=== PATIENT | male | born 1985 | race Caucasian/White ===

== ENCOUNTER 2024-05-15 13:54 | Outpatient (REF) | payer MEDICAID, SELFPAY ==
--- NOTE | ~2024-05-15 | XR_ITS ---
EXAMINATION: XR HIP, RIGHT CLINICAL INFORMATION: Right hip pain. COMPARISON: None available. TECHNIQUE: Two views of the right hip. FINDINGS: The visualized right-sided pelvic bones are normal. The articular cartilage space of the right hip is maintained. No arthritic deformity. No fracture or subluxation. The greater and lesser trochanters of the femur have normal smooth contour. No lytic or osteoblastic lesion. A small focus of calcific density of 0.6 cm length projecting lateral to the greater trochanter could represent calcium hydroxyapatite deposition within the gluteus medius tendon. There is no erosion of the overlying cortex. Otherwise, soft tissues are unremarkable. XR/XR hip RT min 2V IMPRESSION: * No acute osseous injury at the right hip. * No arthritic deformity. * Small focus of calcific density projecting lateral to the greater trochanter could represent calcium hydroxyapatite deposition within the gluteus medius tendon and calcific tendinopathy could be a source of pain.
== END 2024-05-15 13:55 | disposition home or self-care (01) ==
LOC: HO.HHCX 13:54
PROVIDERS: Visit Provider Internal Medicine
DX: M70.61 Trochanteric bursitis, right hip (principal); M25.551 Pain in right hip
CPT/HCPCS: 73502

== ENCOUNTER 2024-05-15 14:15 | Outpatient (REF) | payer MEDICAID, SELFPAY | END 2024-05-15 14:16 | disposition home or self-care (01) | LOC: HO.HHCL 14:15 | PROVIDERS: Visit Provider Internal Medicine | DX: Z13.89 Encounter for screening for other disorder (principal) ==

== ENCOUNTER 2024-06-14 09:17 | Outpatient (AMB) | payer MEDICAID, SELFPAY ==
--- NOTE | 2024-06-14 09:21 | MHC.OFFVIS ---
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 Patient reports that he went to [facility] walk in a month ago, which pain was at a nine. He was told there was calcium deposit. He changed his diet for a anti-inflammatory diet and it make his pain better. Currently he is not having any pain but he would like to know if there is anything they missed on the x rays. 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 The patient was seen by internal medicine on 05/15/2024 with a complaint of right hip pain for one month. ? ? While in the office today, the patient confirms being seen at Walk-in clinic in 04/2024. He states at that time his pain was a 9/10. He claims he was told he had a calcium deposit in the right hip. He states he adjusted his diet to an anti-inflammatory diet and his pain is better. He denies having pain in the office today and states he is here to follow-up on his x-rays. ? [facility] Social History (Updated 06/14/24 @ 09:27 by Amairani Pedraza) Alcohol intake: never Patient Tobacco Use Status: Former Tobacco user Current occupational status: employed Current occupation: [employer] Review of Systems Const All systems reviewed & are unremarkable except as noted in HPI and below Physical Exam Const General: cooperative and no acute distress Orientation/consciousness: patient oriented x3 Resp Effort & Inspection: normal respiratory effort and able to speak in complete sentences Cardio Peripheral pulses: Peripheral pulses 2+ throughout Skin General skin exam: no rashes or lesions noted Neuro General: patient oriented x3 Extrem Other: Right hip: Normal to inspection. No ecchymosis, erythema, or edema. Full hip ROM in all planes. Slight tenderness to palpation over the greater trochanteric bursa. 5/5 strength with resisted hip flexion, knee extension, abduction, and abduction. Able to perform straight leg raise. NVI.? ? Patient reports numbness in the bilateral lateral lower extremity when in the prone position.? Assessment & Plan Assessment & Plan (1) Neuropathy, lateral femoral cutaneous nerve: Code(s): G57.10 - Meralgia paresthetica, unspecified lower limb Category: Medical (2) Greater trochanteric bursitis of right hip: Code(s): M70.61 - Trochanteric bursitis, right hip Category: Medical Plan Mr. Gamboa is a 39-year-old male who presents in the office today, as a new patient, for an evaluation of right hip pain. The patient was seen by internal medicine on 05/15/2024 with a complaint of right hip pain for one month. ? ? While in the office today, the patient confirms being seen at Walk-in clinic in 04/2024. He states at that time his pain was a 9/10. He claims he was told he had a calcium deposit in the right hip. He states he adjusted his diet to an anti-inflammatory diet and his pain is better. He denies having pain in the office today and states he is here to follow-up on his x-rays.? ? The patient may return to normal activities as tolerated. I educated the patient he should attempt to avoid repetitive motions in the future to help avoid a return of or worsening of his symptoms. He is able to take OTC anti-inflammatories. ? ? The patient expressed a concern about bilateral lateral lower extremity numbness and pain when laying prone. He would like to be further evaluated for this, therefore, a referral to Physiatry for further evaluation and treatment for the lower spine was made in the office today. ? ? Follow-up will be PRN, or sooner if needed. ? ? X-rays of the right hip, obtained on 05/15/2024, revealed:? * No acute osseous injury at the right hip.? * No arthritic deformity.? * Small focus of calcific density projecting lateral to the greater? trochanter could represent calcium hydroxyapatite deposition within the? gluteus medius tendon and calcific tendinopathy could be a source of? pain.? Patient Instructions: Scribed by Bianca Blair medical collector, for Magali Eaton PA-C on 06/14/2024 at 9:25 am, EST.? Coding Level of Care Code New Pt Level 3 (69792) Diagnoses Neuropathy, lateral femoral cutaneous nerve G57.10 Greater trochanteric bursitis of right hip M70.61
== END 2024-06-14 09:53 | disposition home or self-care (01) ==
PROVIDERS: PCP Internal Medicine; Visit Provider Physician Assistant
DX: M70.61 Trochanteric bursitis, right hip (principal); G57.10 Meralgia paresthetica, unspecified lower limb
CPT/HCPCS: 99203

== ENCOUNTER → 2024-06-14 09:17 | Outpatient (BNVA) | payer MEDICAID, SELFPAY | PROVIDERS: PCP Internal Medicine; Visit Provider Physician Assistant | DX: M70.61 Trochanteric bursitis, right hip (principal); G57.10 Meralgia paresthetica, unspecified lower limb | CPT/HCPCS: 99212 ==

== ENCOUNTER 2024-12-20 16:50 | Outpatient (REF) | payer MEDICAID, SELFPAY ==
[2024-12-20 18:08] LABS: Alanine Aminotransferase 18 U/L (0-40); Albumin Level 4.5 g/dL (3.5-5.0); Alkaline Phosphatase 65 U/L (39-117); Aspartate Amino Transferase 26 U/L (5-37); Bilirubin Direct 0.5 mg/dL (0.0-0.5); Bilirubin Total 1.6 mg/dL (0.0-1.0); Total Protein 7.8 g/dL (6.5-8.0)
[2024-12-21 08:09] LABS: ~HepC Num1 0.06 S/CO (0.00-0.79); ~Hepatitis C Antibody Nonreactive (Nonreactive)
== END 2024-12-20 16:51 | disposition home or self-care (01) ==
LOC: HO.HHCL 16:50
PROVIDERS: Visit Provider Family Medicine
DX: R10.11 Right upper quadrant pain (principal); F10.21 Alcohol dependence, in remission
CPT/HCPCS: 36415; 80076; 86803

== ENCOUNTER 2025-01-30 12:34 | Outpatient (REF) | payer MEDICAID, SELFPAY ==
[2025-01-30 13:16] LABS: MANUAL DIFF FLAG NO
[2025-01-30 13:27] LABS: Basophils Percent Auto 0.5 % (0-2); Hematocrit 46.8 % (42.0-52.0); Hemoglobin 15.9 g/dl (14.0-18.0); Imm Gran Abs Auto 0.03 X10*3/uL (0.00-0.03); Imm Gran Pct Auto 0.4 % (0.0-0.4); Lymphocytes Percent Auto 24.8 % (20-40); Mean Corpuscular Hemoglobin 30.4 pg (27.0-33.0); Mean Corpuscular Volume 89.5 fL (80.0-98.0); Mean Platelet Volume 9.5 fL (9.4-12.4); Monocytes Absolute Auto 0.7 X10*3/uL (0.1-1.2); Monocytes Percent Auto 8.2 % (2-11); Neutrophils Absolute Auto 5.3 x10*3/uL (2.0-8.3); Neutrophils Percent Auto 66.1 % (45-73); Platelet Count 301 X10*3/uL (160-400); Red Blood Count 5.23 X10*6/uL (4.60-5.80); White Blood Count 8.1 X10*3/uL (4.8-10.8)
[2025-01-30 13:36] LABS: Appearance Urine Clear; Color Urine Yellow; Glucose Urine UA Negative (Negative); Leukocyte Esterase Urine Negative (Negative); Nitrite Urine Negative (Negative); PH 6.5 (5.0-9.0); Urine Blood Negative (Negative); Urine Ketones 40 mg/dL (Negative); Urine Protein Negative (Neg-Trace)
[2025-01-30 13:40] LABS: Bacteria Urine None Seen (None Seen); Hyaline Casts Urine 0-2 /LPF (0-2); RBC Urine 0-2 /HPF (0-2); Squamous Epithelial Cell Urine 0-2 /HPF (0-2); WBC Urine 0-5 /HPF (0-5)
[2025-01-30 13:57] LABS: Alanine Aminotransferase 31 U/L (0-40); Albumin Level 4.7 g/dL (3.5-5.0); Alkaline Phosphatase 79 U/L (39-117); Anion Gap 13 (12-20); Aspartate Amino Transferase 38 U/L (5-37); Bilirubin Total 3.2 mg/dL (0.0-1.0); Blood Urea Nitrogen 4 mg/dL (9-16); Calcium 9.4 mg/dL (8.4-10.2); Carbon Dioxide 25 mmol/L (22-29); Chloride 106 mmol/L (96-108); Estimated Glomerular Filt Rate > 60; Glucose Random 102 mg/dL (60-115); Lipase 20 U/L (8-78); Potassium 3.8 mmol/L (3.3-5.1); Sodium 140 mmol/L (135-145)
--- OUTSIDE RECORDS SUMMARY | 2025-01-30 15:36 | XMS_ITS | Encounter Summary ---
Author Organization [employer] Address [address] [facility] 7 [place] [address] Care Team Providers Care Physical Laboratory Assistant Name Role Phone Olaf Gillespie MD Primary Care Prov ider Reason for Referral * Consultation (Routine) - Closed Specialty Diagnoses / Procedures Referred By Contperla t Referred To Contact Orthopaedic Surgery Diagnoses Right hip pain Angel Fraser MD [address] [place] [address] Phone: tel: fax: [facility] [address] [place] [address] Phone: tel: Referral ID Status Reason Start Date Expiration Date V isits Requested Visits Authorized [id number] Closed Specialty Services Required 05/15/2024 05/15/2025 1 1 Encounter Details Date Type Department Care Team (Late st Contact Info) Description 05/15/2024 Orders Only [facility] [address] [place] [address] Angel Fraser MD [address] [place] [address] Right hip pain (Primary Dx) Social History Tobacco Use Types Packs/Day Years Used Date Smoking Tobacco: Some Days Cigarettes Pipe Passive Smoke Exposure: Never Smokeless Tobacco: Never Comments:Smoke 1 pack of cig a month. Alcohol Use Standard Drinks/Week Comments Never 0 (1 standard drink = 0.6 oz pur e alcohol) sober 2 years Sex and Gender Information Value Date Recorded Sex Assigned at Male 10/01/2022 6:58 PM EDT Legal Sex Male 5:35 PM EDT Gender Identity Male 10/01/2022 6:58 PM EDT Sexual Orientation Choose not to disclose 2021 6:58 PM EDT documented as of this encounter Plan of Treatment Upcoming Encounters Date Type Department Care Team (Late st Contact Info) Description 02/12/2025 9:00 AM EDT Office Visit [facility] [address] [place] [address] Olaf Gillespie MD [address] [place] [address] 04/17/2025 10:10 AM EDT Office Visit [facility] [address] [place] [address] Pamela Poe LLD [address] [place] [phone] Scheduled Referrals Name Type Priority Associated Diagnoses Order Schedule Referral to Orthopaedic Surgery Outpatient Referral Routine Right hip pain Expected: 05/15/2024 (Approximate), Expires: 05/15/2025 documented as of this encounter Visit Diagnoses Diagnosis Right hip pain- Primary Pain in joint, pelvic region and thigh documented in this encounter Care Teams Physical Laboratory Assistant Relationship Specialty Start Date End Date Olaf Gillespie MD [address] [place] [address] PCP - General Internal Medicine 12/11/24 documented as of this encounter
--- OUTSIDE RECORDS SUMMARY | 2025-01-30 15:36 | XMS_ITS | Encounter Summary ---
Author Organization [employer] Address [address] [place] [address] [address] [place] [address] Care Team Providers Care Armature Repairer Name Role Phone Olaf Gillespie MD Primary Care Prov ider Reason for Referral * Imaging (Urgent) - Authorized Specialty Diagnoses / Procedures Referred By Contac t Referred To Contact Radiology Diagnoses Right upper quadrant pain Procedures US Abdomen Complete Cheryle Beltran MD [address] [place] [address] Phone: tel: fax: [address] Phone: tel: fax: Referral ID Status Reason Start Date Expiration Date V isits Requested Visits Authorized [id number] Authorized 01/30/2025 01/30/2026 1 1 Reason for Visit * Reason Comments sick visit Encounter Details Date Type Department Care Team (Late st Contact Info) Description 01/30/2025 11:15 AM EST Office Visit [facility] [address] [place], [place] [phone] Cheryle Beltran MD [address] [place], [place] [phone] Right upper quadrant pain (Primary Dx) Social History Tobacco Use Types Packs/Day Years Used Date Smoking Tobacco: Some Days Cigarettes Pipe Passive Smoke Exposure: Never Smokeless Tobacco: Never Tobacco Cessation:Ready to Q uit: Not Asked; Counseling Given: Not Answered Comments:Smoke 1 pack of cig a month. Alcohol Use Standard Drinks/Week Comments Never 0 (1 standard drink = 0.6 oz pur e alcohol) sober 2 years Depression Answer Date Recorded Patient Health Questionnaire-9 Score 6 01/01/2025 Patient Health Questionnaire-9 Score 6 01/01/2025 Last PHQ-9: Questionnaire Data Not on file 0 01/01/2025 Depression Answer Date Recorded Patient Health Questionnaire-2 Score 2 01/01/2025 Sex and Gender Information Value Date Recorded Sex Assigned at Male 10/01/2022 6:58 PM EDT Legal Sex Male 5:35 PM EDT Gender Identity Male 10/01/2022 6:58 PM EDT Sexual Orientation Choose not to disclose 2021 6:58 PM EDT documented as of this encounter Last Filed Vital Signs Vital Sign Reading Time Taken Comments Blood Pressure 142/78 01/30/2025 11:29 AM EST Pulse 80 01/30/2025 11:29 AM EST Temperature 36.7 ??C (98.1 ??F) 01/30/2025 11:[address] Respiratory Rate 18 01/30/2025 11:29 AM EST Oxygen Saturation 98% 01/30/2025 11:29 AM EST Inhaled Oxygen Concentration - - Weight 62.8 kg (138 lb 6.4 oz) 01/30/2025 11:29 AM EST Height 170.2 cm (5' 7 ) 01/30/2025 11:29 AM EST Body Mass Index 21.68 01/30/2025 11:29 AM EST documented in this encounter Progress Notes * Cheryle Beltran MD - 01/30/2025 11:15 AM EST SUBJECTIVE: Ranulfo Gamboa is a 40 y.o. year old male who presents for acute visit. Denies recent illness, ER visit, or hospitalization. Acute Concerns: RUQ abdominal pain following dietary changes of moving to all raw foods diet. He notes intermittentpain under R costal margin. He is belching frequently, though this was happening prior to diet changes as well. He is experiencing anxiety related to RUQ pain and elevated bilirubin. However, what caused him to come to clinic today was intermittent rectal pain x 1 week. His partner's father was just diagnosed with rectal cancer and he is concerned about the possibility for himself. He denies rectal bleeding. He denies urinary symptoms. Was in walkin 12/20/24 with similar symptoms, normal liver enzymes, bilirubin of 1.6 on that exam Patient Active Problem List Diagnosis Chronic alcoholism in remission ([facility]) Encounter for medical examination to establish care Belching Laboratory test Moderate anxiety History reviewed. No pertinent surgical history. Family History Problem Relation Name Age of Onset Thyroid disease Mother Celiac disease Mother Irritable bowel syndrome Mother Skin cancer Mother Obesity Mother Alcohol abuse Father Diabetes type II Paternal Grandfather Social History Social History Narrative Not on file Review of Systems Constitutional: Negative. Respiratory: Negative. Cardiovascular: Negative. Gastrointestinal: Positive for abdominal pain and rectal pain. Negative for abdominal distention, anal bleeding, blood in stool, constipation, diarrhea, nausea and vomiting. Musculoskeletal: Negative. Skin: Negative. OBJECTIVE: Vitals: 01/30/25 1129 BP: (!) 142/78 BP Location: Left arm Patient Position: Sitting BP Cuff Size: Adult Pulse: 80 Resp: 18 Temp: 98.1 ??F (36.7 ??C) TempSrc: Temporal SpO2: 98% Weight: 138 lb 6.4 oz (62.8 kg) Height: 5' 7 (1.702 m) Physical Exam Vitals and nursing note reviewed. Constitutional: Appearance: Normal appearance. He is normal weight. HENT: Head: Normocephalic and atraumatic. Cardiovascular: Rate and Rhythm: Normal rate and regular rhythm. Pulses: Normal pulses. Heart sounds: Normal heart sounds. Pulmonary: Effort: Pulmonary effort is normal. Breath sounds: Normal breath sounds. Abdominal: General: Abdomen is flat. There is no distension. Palpations: Abdomen is soft. There is no mass. Tenderness: There is abdominal tenderness. Musculoskeletal: Cervical back: Normal range of motion and neck supple. Skin: General: Skin is warm and dry. Capillary Refill: Capillary refill takes less than 2 seconds. Neurological: General: No focal deficit present. Mental Status: He is alert and oriented to person, place, and time. Psychiatric: Mood and Affect: Mood normal. Behavior: Behavior normal. Latest Reference Range & Units 12/20/24 16:51 Albumin Level 3.5 - 5.0 g/dL 4.5 Bilirubin, Total 0.0 - 1.0 mg/dL 1.6 (H) AST 5 - 37 U/L 26 ALT 0 - 40 U/L 18 Total Protein 6.5 - 8.0 g/dL 7.8 Hepatitis C Antibody Nonreactive Nonreactive Alkaline Phosphatase 39 - 117 U/L 65 Bilirubin, Direct 0.0 - 0.5 mg/dL 0.5 (H): Data is abnormally high ASSESSMENT/PLAN Problem List Items Addressed This Visit None Visit Diagnoses Right upper quadrant pain - Primary Relevant Orders Urinalysis, Complete, with Reflex to Culture Comprehensive Metabolic Panel CBC auto differential Lipase US Abdomen Complete Follow Up: per PCP recall or sooner prn No Known Allergies Current Outpatient Medications: Diclofenac Sodium 1 % gel, To apply to the affected area 3 times a day (Patient not taking: Reported on 12/25/2024), Disp: 100 g, Rfl: 0 documented in this encounter Plan of Treatment Upcoming Encounters Date Type Department Care Team (Late st Contact Info) Description 02/12/2025 9:00 AM EDT Office Visit [facility]S [address] [place] [address] VelizOlaf Jose MD [address] [place] [address] 04/17/2025 10:10 AM EDT Office Visit [place] [facility] [address] [place] [address] Pamela Poe LLD [address] [place] [address] Scheduled Orders Name Type Priority Associated Diagnoses Orde r Schedule US Abdomen Complete Imaging Urgent Right upper quadrant pain Expected: 01/30/2025, Expires: 01/30/2026 documented as of this encounter Procedures Procedure Name Priority Date/Time Associated Diagnosis Comments URINALYSIS, COMPLETE, WITH REFLEX TO CULTURE Routine 01/30/2025 12:38 PM EST Right upper quadrant pain CBC WITH AUTO DIFFERENTIAL Routine 01/30/2025 12:38 PM EST Right upper quadrant pain LIPASE Routine 01/30/2025 12:38 PM EST Right upper quadrant pain COMPREHENSIVE METABOLIC PANEL Routine 01/30/2025 12:38 PM EST Right upper quadrant pain documented in this encounter Results * Lipase (01/30/2025 12:38 PM EST) Lipase 20 8 - 78 U/L [facility] Blood Venous blood specimen / Unknown 01/30/2025 12:38 PM EST 01/30/2025 1:14 PM EST us Cheryle Beltran MD LAB BLOOD ORDERABLES Final Res ult [facility] [address] [place] [phone] * CBC auto differential (01/30/2025 12:38 PM EST) Pathologist [facility] White Blood Count 8.1 4.8 - 10.8 X10*3/uL [facility] Red Blood Count 5.23 4.60 - 5.80 X10*6/uL [facility] Hemoglobin 15.9 14.0 - 18.0 g/dl [facility] Hematocrit 46.8 42.0 - 52.0 % [facility] Mean Corpuscular Volume 89.5 80.0 - 98.0 fL [facility] Mean Corpuscular Hemoglobin 30.4 27.0 - 33.0 pg [facility] Mean Corpuscular HGB Conc 34.0 31.0 - 36.0 g/dl [facility] Red Cell Distribution Width 13.0 11.0 - 16.0 % [facility] Platelet Count 301 160 - 400 X10*3/uL [facility] Mean Platelet Volume 9.5 9.4 - 12.4 fL [facility] Neutrophils Percent Auto 66.1 45 - 73 % [facility] Imm Gran Pct Auto 0.4 0.0 - 0.4 % [facility] Lymphocytes Percent Auto 24.8 20 - 40 % [facility] Monocytes Percent Auto 8.2 2 - 11 % [facility] Eosinophils Percent Auto 0.0 0 - 4 % [facility] Basophils Percent Auto 0.5 0 - 2 % [facility] NRBC Pct Auto 0.0 0.0 - 0.2 /100WBC [facility] Neutrophils Absolute Auto 5.3 2.0 - 8.3 x10*3/uL [facility] Imm Gran Abs Auto 0.03 0.00 - 0.03 X10*3/uL [facility] Lymphocytes Absolute Auto 2.0 1.2 - 4.9 X10*3/uL [facility] Monocytes Absolute Auto 0.7 0.1 - 1.2 X10*3/uL [facility] Eosinophils Absolute Auto 0.0 0.0 - 0.4 X10*3/uL [facility] Basophils Absolute Auto 0.0 0.0 - 0.2 X10*3/uL [facility] NRBC Abs Auto 0.000 0.0 - 0.012 X10*3/uL [facility] Blood Venous blood specimen / Unknown 01/30/2025 12:38 PM EST 01/30/2025 1:14 PM EST us Cheryle Beltran MD LAB BLOOD ORDERABLES Final Res ult [facility] [address] [place] [phone] * (ABNORMAL) Comprehensive Metabolic Panel (01/30/2025 12:38 PM EST) Sodium 140 135 - 145 mmol/L [facility] Potassium 3.8 3.3 - 5.1 mmol/L [facility] Chloride 106 96 - 108 mmol/L [facility] Carbon Dioxide 25 22 - 29 mmol/L [facility] Anion Gap 13 12 - 20 [facility] Urea Nitrogen (BUN) 4(L) 9 - 16 mg/dL [facility] Creatinine, Serum 0.77 0.5 - 1.4 mg/dL [facility] Estimated Glomerular Filt Rate >60 [facility] Comment:Chronic Kidney Disea se: Estimated GFR < 60 mL/min/1.30n1Kyfnas Kidney Disease: Estimated GFR < 15 mL/min/1.73m2 Glucose 102 60 - 115 mg/dL [facility] Calcium 9.4 8.4 - 10.2 mg/dL [facility] Bilirubin, Total 3.2(H) 0.0 - 1.0 mg/dL [facility] Comment:Slight Icterus. Aspartate Amino Transferase 38(H) 5 - 37 U/L [facility] Alanine Aminotransferase 31 0 - 40 U/L [facility] Total Protein 8.0 6.5 - 8.0 g/dL [facility] Albumin Level 4.7 3.5 - 5.0 g/dL [facility] Alkaline Phosphatase 79 39 - 117 U/L [facility] Blood Venous blood specimen / Unknown 01/30/2025 12:38 PM EST 01/30/2025 1:14 PM EST us Cheryle Beltran MD LAB BLOOD ORDERABLES Final Res ult [facility] [address] [place] [phone] * Urinalysis, Complete, with Reflex to Culture (01/30/2025 12:38 PM EST) Color Urine Yellow [facility] Appearance Urine Clear [facility] PH 6.5 5.0 - 9.0 [facility] Glucose Urine UA Negative Negative mg/dL [facility] Urine Blood Negative Negative [facility] Specific [place] - Urine 1.010 1.005 - 1.025 [facility] Urine Protein Negative Neg-Trace mg/dL [facility] Urine Ketones 40 Negative mg/dL [facility] Nitrite Urine Negative Negative [facility] Leukocyte Esterase Urine Negative Negative [facility] RBC Urine 0-2 0 - 2 /HPF [facility] Urine WBC 0-5 0 - 5 /HPF [facility] Urine Squamous Epithelial Cell 0-2 0 - 2 /HPF [facility] Urine Bacteria None Seen None Seen [facility] Hyaline Casts, Urine 0-2 0 - 2 /LPF [facility] Urine 01/30/2025 12:3 8 PM EST 01/30/2025 1:10 PM EST Narrative [facility] - 01/30/2025 1:40 PM EST Urine, Clean Catch us Cheryle Beltran MD LAB URINE ORDERABLES Final Res ult [facility] [address] [place] [phone] documented in this encounter Visit Diagnoses Diagnosis Right upper quadrant pain- Primary Abdominal pain, right upper quadrant documented in this encounter Additional Health Concerns Assessment Noted Time PHQ-9 Depression Total Score: 6 01/01/20 3:47 PM EST documented as of this encounter Care Teams Armature Repairer Relationship Specialty Start Date End Date Olaf Gillespie MD [address] [place] [phone] PCP - General Internal Medicine 12/11/24 documented as of this encounter
--- OUTSIDE RECORDS SUMMARY | 2025-01-30 15:36 | XMS_ITS | Encounter Summary ---
Author Organization [employer] Address [address] [place] [address] Care Team Providers Care Commercial Light Fixture Assembler Name Role Phone Olaf Gillespie MD Primary Care Prov ider Encounter Details Date Type Department Care Team (Latest Contact Info) Description 01/01/2025 Travel Social History Tobacco Use Types Packs/Day Years [...] Description 02/12/2025 9:00 AM EDT Office Visit [facility] MED & PEDS [address] [place] [address] Olaf Gillespie MD [address] [place] [address] 04/17/2025 10:10 AM EDT Office Visit [facility] [address] [facility] [place] [address] Pamela Poe LLD 9 [place] [address] documented as of this encounter Visit Diagnoses Not on filedocumented in this encounter Additional Health Concerns Assessment Noted Time PHQ-9 Depression Total Score: 6 01/01/20 3:47 PM EST documented as of this encounter Care Teams Commercial Light Fixture Assembler Relationship Specialty Start Date End Date Olaf Gillespie MD [address] [place] [address] PCP - General Internal Medicine 12/11/24 documented as of this encounter
--- OUTSIDE RECORDS SUMMARY | 2025-01-30 15:36 | XMS_ITS | Encounter Summary ---
Author Organization [employer] Address [address] [place] [address] 7 [place] [address] Care Team Providers Care Die Machine Operator Name Role Phone Angel Fraser MD Primary Care Provider +1- [phone] Olaf Gillespie MD Primary Care Prov ider Encounter Details Date Type Department Care Team (Latest Contact Info) Description 10/17/2019 Abstract [facility] Dental, Provider, DDS Social History Tobacco Use Types Packs/Day Years Used Date Smoking Tobacco: Never Assessed Sex and Gender Information Value Date Recorded [...] Description 02/12/2025 9:00 AM EDT Office Visit [facility] CHC MED & PEDS [address] [place] [address] Olaf Gillespie MD [address] [place] [address] 04/17/2025 10:10 AM EDT Office Visit [facility] Dental [address] [place] [address] Pamela Poe LLD 9 [place] [address] documented as of this encounter Visit Diagnoses Not on filedocumented in this encounter Care Teams Die Machine Operator Relationship Specialty Start Date End Date Angel Fraser MD [address] [place] [address] PCP - General Internal Medicine 07/05/18 12/19/23 Olaf Gillespie MD [address] [place] [address] PCP - General Internal Medicine 12/11/24 documented as of this encounter
--- OUTSIDE RECORDS SUMMARY | 2025-01-30 15:36 | XMS_ITS | Clinical Summary ---
Author Organization [email or web address] Address [address] [facility] 7t [place] [address] Care Team Providers Care Planning Supervisor Name Role Phone Olaf Gillespie MD Primary Care Prov ider Allergies No known active allergies Medications * This document contains information received from the source organization and may not represent a complete record from that organization. Diclofenac Sodium 1 % gelIndications: Trochanteric bursitis of right hip,Right hip pain To apply to the affected area 3 times a day 100 g 4 Active Additional Information Patient not taking.Reported on 12/25/2024 Active Problems Problem Noted Date Diagnosed Date Moderate anxiety 01/01/2025 Assessment & Plan (01/02/2025 8:52 AM EST): During IBH Consult Ranulfo presenting with excessive worry/anxiety, difficulty controlling worry, anxiety/worry associated to restlessness and/or feeling keyed-up/On edge , easily fatigued , difficulty concentrating and/or mind going blank , irritability, and sleep disturbance difficulty falling asleep, Fear , and sense of dread ; for a period of 6-12 mo, for most or all symptoms in the context of financial concern, illness or family illness, relationship issues, and housing. Ranulfo carries a diagnosis for Chronic Alcoholism in remission. Pt reported he has been sober over two years. He's constantly living in fear contemplating medical consequences of his alcohol misuse in the past. Currently triggers identified are his housing/financial situation and his complicated dynamics with his partner. clinician engaged patient with active/reflective listening. Validated and empathized with patient's emotions. Reviewed and assessed for risk, current stressors and protective factors using open-ended questions. Pt is aware of the importance of using coping strategies to decrease sxs. Explored techniques that he can continue using (meditation, working out, walking) and other strategies (breathing exercises) to incorporate into daily routine. Referral for OP individual therapy will be place. Laboratory test 12/21/2024 Assessment & Plan (12/21/2024 2:00 PM EST): Found with slightly elevated bilirubin, he has been doing a extreme diet, refers about 500 calories a day eating mostly vegetables and fruits, also was recently with a URI, discussed differential is broad including dehydration/diet, rest of labs were stable including liver test, will follow up in office as scheduled Belching 12/19/2024 Assessment & Plan (12/19/2024 5:55 PM EST): Likely due to increased acid intake from raw fruit/juicing and increased prebiotic load from dietary changes. Advise decrease acidic foods and increase caloric intake. 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 Pt reports guilt about his past and enquired about seeing a therapist. NO stigmata of advance liver disease -liver function tests and hep C ab ordered -behavior health referral placed 12/19/24 Resolved Problems Problem Noted Date Diagnosed Date Resolved Date Right upper quadrant abdominal pain 12/19/2024 12/19/2024 Assessment & Plan (12/19/2024 5:17 PM EST): Likely due to increased acid intake from raw fruit and salad dietary changes. -ordered labs 12/19/24 -discussed and encouraged including healthy fats and some grains. Encounters * This document contains information received from the source organization and may not represent a complete record from that organization. Date Type Department Care Team Description 01/30/2025 11:15 AM EST Office Visit [facility] [address] [place] [address] Cheryle Beltran MD Right upper quadrant pain (Primary Dx) 01/30/[address] [address] Cheryle Beltran MD Results 01/30/[address] [address] Olaf Gillespie MD Nurse Triage 01/22/2025 9:00 AM EST Office Visit [facility] DENTAL [address] [place] [address] Gina Rascon LLD 01/01/2025 Travel 12/25/2024 10:00 AM EST Office Visit [facility] D[facility] [address] [place] [address] Gina Rascon LLD 12/21/2024 1:15 PM EST Telemedicine [facility] MED & PEDS [address] [place] [address] Olaf Gillespie MD Anxiety (Primary Dx); Laboratory test 12/21/2024 Travel 12/21/[address] [address] Olaf Gillespie MD Results 12/19/2024 5:00 PM EST Office Visit [facility] [address] [place] [address] Nataliia Amos MD Belching (Primary Dx); Chronic alcoholism in remission ([facility]/HCC) 12/19/2024 Telephone [facility] MED & PEDS [address] [place] [address] Olaf Gillespie MD Walk-In 12/19/2024 Travel 11/20/2024 9:45 AM EST Telemedicine [facility] MED & PEDS [address] [place] [address] Olaf Gillespie MD Encounter for medical examination to establish care (Primary Dx) 11/20/2024 Travel 11/08/2024 Telephone [facility] [address] [place] [address] Olaf Gillespie MD New pt appt from Last 3 Months Family History Medical History Relation Name Comments Alcohol abuse Father Celiac disease Mother Irritable bowel syndrome Mother Obesity Mother Skin cancer Mother Thyroid disease Mother Diabetes type II Paternal Grandfather Relation Name Status Comments Father Mother Paternal Grandfather Social History Tobacco Use Types Packs/Day Years [...] not to disclose 2021 6:58 PM EDT Last Filed Vital Signs Vital Sign Reading [...] Mass Index 21.68 01/30/2025 11:29 AM EST Plan of Treatment Upcoming Encounters Date Type Department Care Team (Late st Contact Info) Description 02/12/2025 9:00 AM EDT Office Visit [facility] CHC MED & PEDS [address] [place] [address] Olaf Gillespie MD [address] [place] [address] 04/17/2025 10:10 AM EDT Office Visit [facility] Dental [address] [place] [address] Pamela Poe LLD 9 [place] [address] Health Maintenance Due Date Last Done Comments HIV Screening 1985 Lipid Panel 1985 SDOH Screening 1985 Alcohol/Substance Use Screening 1997 Family Planning (PISQ) 2000 Pneumococcal Vaccine: Pediatrics (0 to 5 Years) and At-Risk Patients (6 to 49) Years) (1 of 2 - PCV) 2004 Hepatitis B Vaccines (2 of 3 - 19+ 3-dose series) 07/11/2018 06/13/2018 DTaP/Tdap/Td Vaccines (2 - Td or Tdap) 03/15/2024 03/15/2014 COVID-19 Vaccine ( - 2023- season) 2024 Influenza Vaccine (#1) 2024 Dental X-Ray: Full Mouth 10/04/2024 10/03/2021, 03/0 04/2017 Dental Oral Exam 04/17/2025 10/17/2024, , 10/12/2023, Additional history exists Dental Prophylaxis 04/17/2025 10/17/2024, 0 04/12/2024, 10/12/2023, Additional history exists Dental X-Ray: Bitewings 10/18/2025 10/17/20 24, 04/12/2024, 05/13/2023, Additional history exists Depression Screening 01/01/2026 01/01/2025, 01/01/20 Tobacco Screening 01/30/2026 01/30/2025 Zoster Vaccines (1 of 2) 2035 RSV Patients and Patients Aged 60 years or older (1 - 1-dose 75+ series) 2060 Hepatitis C Screening Completed 12/20/2024 HIB Vaccines Aged Out No longer eligi ble based on patient's age to complete this topic HPV Vaccines Aged Out No longer eligi ble based on patient's age to complete this topic Hepatitis A Vaccines Aged Out No long er eligible based on patient's age to complete this topic IPV Vaccines Aged Out No longer eligi ble based on patient's age to complete this topic Meningococcal Vaccine Aged Out No luis maryellen eligible based on patient's age to complete this topic RSV under 20 months Aged Out No longe r eligible based on patient's age to complete this topic Rotavirus Vaccines Aged Out No longer eligible based on patient's age to complete this topic Procedures Procedure Name Priority Date/Time Associated Diagnosis Comments LIPASE Routine 01/30/2025 12:38 PM EST Right upper quadrant pain CBC WITH AUTO DIFFERENTIAL Routine 01/30/2025 12:38 PM EST Right upper quadrant pain COMPREHENSIVE METABOLIC PANEL Routine 01/30/2025 12:38 PM EST Right upper quadrant pain URINALYSIS, COMPLETE, WITH REFLEX TO CULTURE Routine 01/30/2025 12:38 PM EST Right upper quadrant pain 29 DO RESIN-BASED COMPOSITE - 2 SURF, POSTERIOR Routine 01/22/2025 9:00 AM EST CASE PRESENTATION, DETAILED AND EXTENSIVE TREATMENT PLANNING Routine 12/25/2024 10:00 AM EST 12 DO RESIN-BASED COMPOSITE - 2 SURF, POSTERIOR Routine 12/25/2024 10:00 AM EST HEPATITIS C AB W/REFL TO HCV RNA, QN, PCR Routine 12/20/2024 4:51 PM EST Chronic alcoholism in remission (CMS/HCC) HEPATIC FUNCTION PANEL Routine 4:51 PM EST Belching Full PROPHYLAXIS - ADULT Routine 10/17/2024 9:20 AM EST BITEWINGS - 4 RADIOGRAPHIC IMAGES Routine 10/17/2024 9:20 AM EST PERIODIC ORAL EVALUATION - ESTABLISHED PATIENT Routine 10/17/2024 9:20 AM EST INTRAORAL - COMPLETE SERIES OF RADIOGRAPHIC IMAGES Routine 10/03/2021 12:00 AM EDT from Last 3 Months or Most Recently Relevant to Health Maintenance Results * Urinalysis, Complete, with Reflex to Culture (01/30/2025 12:38 PM EST) Color Urine Yellow [facility] Appearance Urine Clear [facility] PH 6.5 5.0 - 9.0 [facility] Glucose Urine UA Negative Negative mg/dL [facility] Urine Blood Negative Negative [facility] Specific [place] - Urine 1.010 1.005 - 1.025 [facility] Urine Protein Negative Neg-Trace mg/dL [facility] Urine Ketones 40 Negative mg/dL [facility] Nitrite Urine Negative Negative [facility] Leukocyte Esterase Urine Negative Negative [facility] RBC Urine 0-2 0 - 2 /HPF [facility] Urine WBC 0-5 0 - 5 /HPF [facility] Urine Squamous Epithelial Cell 0-2 0 - 2 /HPF [facility] Urine Bacteria None Seen None Seen [facility] Hyaline Casts, Urine 0-2 0 - 2 /LPF [facility] Urine 01/30/2025 12:3 8 PM EST 01/30/2025 1:10 PM EST Narrative [facility] - 01/30/2025 1:40 PM EST Urine, Clean Catch us Cheryle Beltran MD LAB URINE ORDERABLES Final Res ult [facility] [address] [place] [address] [phone] * CBC auto differential (01/30/2025 12:38 PM EST) White Blood Count 8.1 4.8 - 10.8 X10*3/uL [facility] Red Blood Count 5.23 4.60 - 5.80 X10*6/uL [facility] Hemoglobin 15.9 14.0 - 18.0 g/dl [facility] Hematocrit 46.8 42.0 - 52.0 % [facility] Mean Corpuscular Volume 89.5 80.0 - 98.0 fL [facility] Mean Corpuscular Hemoglobin 30.4 27.0 - 33.0 pg [facility] Mean Corpuscular HGB Conc 34.0 31.0 - 36.0 g/dl [facility] Red Cell Distribution Width 13.0 11.0 - 16.0 % [facility] Platelet Count 301 160 - 400 X10*3/uL [facility] Mean Platelet Volume 9.5 9.4 - 12.4 fL [facility] Neutrophils Percent Auto 66.1 45 - 73 % [facility] Imm Gran Pct Auto 0.4 0.0 - 0.4 % [facility] Lymphocytes Percent Auto 24.8 20 - 40 % [facility] Monocytes Percent Auto 8.2 2 - 11 % [facility] Eosinophils Percent Auto 0.0 0 - 4 % [facility] Basophils Percent Auto 0.5 0 - 2 % [facility] NRBC Pct Auto 0.0 0.0 - 0.2 /100WBC [facility] Neutrophils Absolute Auto 5.3 2.0 - 8.3 x10*3/uL [facility] Imm Gran Abs Auto 0.03 0.00 - 0.03 X10*3/uL [facility] Lymphocytes Absolute Auto 2.0 1.2 - 4.9 X10*3/uL [facility] Monocytes Absolute Auto 0.7 0.1 - 1.2 X10*3/uL [facility] Eosinophils Absolute Auto 0.0 0.0 - 0.4 X10*3/uL [facility] Basophils Absolute Auto 0.0 0.0 - 0.2 X10*3/uL [facility] NRBC Abs Auto 0.000 0.0 - 0.012 X10*3/uL [facility] Blood Venous blood specimen / Unknown 01/30/2025 12:38 PM EST 01/30/2025 1:14 PM EST Cheryle Beltran MD LAB BLOOD ORDERABLES Final Res ult Performing Organization Address City/[facility]/ZIP Co de Phone Number [facility] [address] [place] [address] [phone] * Lipase (01/30/2025 12:38 PM EST) Lipase 20 8 - 78 U/L [facility] Blood Venous blood specimen / Unknown 01/30/2025 12:38 PM EST 01/30/2025 1:14 PM EST Cheryle Beltran MD LAB BLOOD ORDERABLES Final Res ult Performing Organization Address [facility] Co de Phone Number [facility] [address] [place] [address] [phone] * (ABNORMAL) Comprehensive Metabolic Panel (01/30/2025 12:38 PM EST) Pathologist [facility] Sodium 140 135 - 145 mmol/L [facility] Potassium 3.8 3.3 - 5.1 mmol/L [facility] Chloride 106 96 - 108 mmol/L [facility] Carbon Dioxide 25 22 - 29 mmol/L [facility] Anion Gap 13 12 - 20 [facility] Urea Nitrogen (BUN) 4(L) 9 - 16 mg/dL [facility] Creatinine, Serum 0.77 0.5 - 1.4 mg/dL [facility] Estimated Glomerular Filt Rate >60 [facility] Comment:Chronic Kidney Disea se: Estimated GFR < 60 mL/min/1.61w2Xwicyg Kidney Disease: Estimated GFR < 15 mL/min/1.73m2 Glucose 102 60 - 115 mg/dL [facility] Calcium 9.4 8.4 - 10.2 mg/dL [facility] Bilirubin, Total 3.2(H) 0.0 - 1.0 mg/dL [facility] Comment:Slight Icterus. Aspartate Amino Transferase 38(H) 5 - 37 U/L [facility] Alanine Aminotransferase 31 0 - 40 U/L [facility] Total Protein 8.0 6.5 - 8.0 g/dL [facility] Albumin Level 4.7 3.5 - 5.0 g/dL [facility] Alkaline Phosphatase 79 39 - 117 U/L [facility] Blood Venous blood specimen / Unknown 01/30/2025 12:38 PM EST 01/30/2025 1:14 PM EST Cheryle Beltran MD LAB BLOOD ORDERABLES Final Res ult Performing Organization Address [facility] Co de Phone Number [facility] [address] [place] [address] [phone] * Hepatitis C Antibody with Reflex to HCV, RNA, Quantitative, Real-Time PCR (12/20/2024 4:51 PM EST) Hepatitis C Antibody Nonreactive Nonreactive [facility] Comment:Antibodies to HCV no t detected; does not exclude early acuteHCV infection. Blood Venous blood specimen / Unknown 12/20/2024 4:51 PM EST 12/20/2024 5:35 PM EST us Nataliia Amos MD LAB BLOOD ORDERABLES Final Result Performing Organization Address [facility] de Phone Number [facility] [address] [place] [phone] * (ABNORMAL) Hepatic Function Panel (12/20/2024 4:51 PM EST) Bilirubin, Total 1.6(H) 0.0 - 1.0 mg/dL [facility] Comment:Slight Icterus. Bilirubin, Direct 0.5 0.0 - 0.5 mg/dL [facility] Comment:Slight Icterus. Aspartate Amino Transferase 26 5 - 37 U/L [facility] Comment:Slight Hemolysis.Int erpret result with caution. Alanine Aminotransferase 18 0 - 40 U/L [facility] Total Protein 7.8 6.5 - 8.0 g/dL [facility] Albumin Level 4.5 3.5 - 5.0 g/dL [facility] Alkaline Phosphatase 65 39 - 117 U/L [facility] Blood Venous blood specimen / Unknown 12/20/2024 4:51 PM EST 12/20/2024 5:35 PM EST us Nataliia Amos MD LAB BLOOD ORDERABLES Final Result Performing Organization Address City/State/[facility] Co de Phone Number [facility] [address] [place] [address] [phone] from Last 3 Months Insurance [facility] C3 DENTAL-[facility] MEDICAID STAND ADULT Care Teams Planning Supervisor Relationship Specialty Start Date End Date Olaf Gillespie MD [address] [place] [phone] PCP - General Internal Medicine 12/11/24
--- OUTSIDE RECORDS SUMMARY | 2025-01-30 15:36 | XMS_ITS | Encounter Summary ---
Author Organization [employer] Address [address] [place] [address] 7 [place] [address] Care Team Providers Care Senior Manager Creative Services Name Role Phone Angel Fraser MD Primary Care Provider +1- [phone] Olaf Gillespie MD Primary Care Prov ider Encounter Details Date Type Department Care Team (Latest Contact Info) Description 09/13/2020 Abstract [facility] Dental, Provider, DDS Social [...] Description 02/12/2025 9:00 AM EDT Office Visit [facility] MED & PEDS [address] [place] [address] Olaf Gillespie MD [address] [place] [address] 04/17/2025 10:10 AM EDT Office Visit [facility] Dental [address] [place] [address] Pamela Poe LLD [address] [place] [address] documented as of this encounter Visit Diagnoses Not on filedocumented in this encounter Care Teams Senior Manager Creative Services Relationship Specialty Start Date End Date Angel Fraser MD [address] [place] [address] PCP - General Internal Medicine 07/05/18 12/19/23 Olaf Gillespie MD [address] [place] [address] PCP - General Internal Medicine 12/11/24 documented as of this encounter
--- OUTSIDE RECORDS SUMMARY | 2025-01-30 15:36 | XMS_ITS | Encounter Summary ---
Author Organization [employer] Address [address] [place] [address] 7 [place] [address] Care Team Providers Care Metal Dresser Name Role Phone Angel Fraser MD Primary Care Provider [phone]- [phone] Olaf Gillespie MD Primary Care Prov ider Encounter Details Date Type Department Care Team (Latest Contact Info) Description 04/10/2022 Abstract [facility] Dental, Provider, DDS Social [...] Description 02/12/2025 9:00 AM EDT Office Visit [facility] MED & PEDS [address] [place] [address] Olaf Gillespie MD [address] [place] [address] 04/17/2025 10:10 AM EDT Office Visit [facility] Dental [address] [place] [address] Pamela Poe LLD [address] [place] [address] documented as of this encounter Visit Diagnoses Not on filedocumented in this encounter Care Teams Metal Dresser Relationship Specialty Start Date End Date Angel Fraser MD [address] [place] [address] PCP - General Internal Medicine 07/05/18 12/19/23 Olaf Gillespie MD [address] [place] [address] PCP - General Internal Medicine 12/11/24 documented as of this encounter
--- OUTSIDE RECORDS SUMMARY | 2025-01-30 15:36 | XMS_ITS | Encounter Summary ---
Author Organization [employer] Address [address] [facility] 7t [place] [address] Care Team Providers Care Pattern Marking Supervisor Name Role Phone Olaf Gillespie MD Primary Care Prov ider Reason for Visit * Reason Onset Date Comments Nurse Triage 01/30/2025 Encounter Details Date Type Department Care Team ([facility] st Contact Info) Description 01/30/2025 Telephone [facility] MEDICINE [address] [place] [address] Olaf Gillespie MD [address] [place] [address] Nurse Triage Social History Tobacco Use Types Packs/Day Years [...] PM EDT documented as of this encounter Miscellaneous Notes * Telephone Encounter - Angi Clarke LPN - 01/30/2025 8:32 AM EST Triage call returned to patient who reports concerns for his health. Patient reports former alcoholabuse in his 20's and that around the holidays felt he was being unhealthily with lack of exercise and poor food intake and weight gain. Patient began working out and had converted to a raw vegan diet. Patient then found some increased belching and abdominal cramping that would come and go. Had been seen in [facility] on 12/19/24 and dietary recommendations discussed. Patient reports concern with the fact that he has rectal pressure.Not followed by BM has no blood in BM no acute abdominal pain. Has current Bms without issue. Pain and cramping sensation is under right rib area . Patient anxious and concerned with cancer.Reports that he has no family history and parents have tried to reassure him that it is more likely IBS as related to raw intake. Patient without postural changes, no fever no vomiting. Disposition reviewed. No PCP appts at this time. Has upcoming PCP appt 02/12/25. Advised of labs as noted in chart active from 05/15/24 and hours and availablility of [facility] today and tomorrow.Patient verbalized understanding.Reviewed with patient home care recommendations, reasons to call back and symptoms that require immediate evaluation in UC or ER. Patient verbalized understanding andagrees. Multiple (2) protocols were used on this call. Disposition for Call: See in Office or Video Visit Today or Tomorrow Protocol Used: Abdominal Pain - Upper (Adult) Protocol-Based Disposition: See in Office or Video Visit Today or Tomorrow Video visit not offered Positive Triage Question: * Mild pain that comes and goes (cramps) > 72 hours (Exception: This same abdominal pain is a chronic symptom recurrent or ongoing AND present > 4 weeks.) * All higher-acuity triage questions were negative Care Advice Discussed: * Diet * Reasons To Call Back - Severe pain present over 1 hour - Constant pain present over 2 hours - You become worse Protocol Used: Rectal Symptoms (Adult) Protocol-Based Disposition: See in Office or Video Visit Today or Tomorrow Positive Triage Question: * Patient wants to be seen * All higher-acuity triage questions were negative Care Advice Discussed: * Reasons To Call Back - You become worse * Telephone Encounter - Patrice Galannandez - 01/30/2025 8:07 AM EST Symptom: Abdominal Pain - Male Outcome: Schedule an appointment to be seen within 24 hours Reason: Caller denied all higher acuity questions The caller accepted this outcome. Contact pt at [phone] documented in this encounter Plan of Treatment Upcoming Encounters Date Type Department Care Team ([facility] st Contact Info) Description 02/12/2025 9:00 AM EDT Office Visit [facility] CHC MED & PEDS [address] [place], [place] [phone] Olaf Gillespie MD 505 [place] [address] 04/17/2025 10:10 AM EDT Office Visit [place] [facility] Dental [address] [place] [address] Pamela Poe LLD 9 [place] [address] documented as of this encounter Visit Diagnoses Not on filedocumented in this encounter Additional Health Concerns Assessment Noted Time PHQ-9 Depression Total Score: 6 01/01/20 3:47 PM EST documented as of this encounter Care Teams Pattern Marking Supervisor Relationship Specialty Start Date End Date Olaf Gillespie MD [address] [place], [place] [phone] PCP - General Internal Medicine 12/11/24 documented as of this encounter
--- OUTSIDE RECORDS SUMMARY | 2025-01-30 15:36 | XMS_ITS | Encounter Summary ---
Author Organization [employer] Address [address] [place] [address] 7t [place] [address] Care Team Providers Care Wire Bender Name Role Phone Olaf Gillespie MD Primary Care Prov ider Reason for Visit * Reason Onset Date Comments Results 01/30/2025 Encounter Details Date Type Department Care Team ([facility] Contact Info) Description 01/30/2025 Telephone [facility] MEDICINE [address] [place] [address] Cheryle Beltran MD [address] [place] [address] Results Social History Tobacco Use Types Packs/Day Years [...] encounter Miscellaneous Notes * Telephone Encounter - Mikael Phelps - 01/30/2025 3:18 PM EST TC from pt requesting call back regarding Results. Type of results: Labs Date when done: 01/30/25 Facility: [facility] lab Pt very concerned with results/ Received via patient portal Pt seen today by Dr Beltran documented in this encounter Plan of Treatment Upcoming Encounters Date Type Department Care Team (Late st Contact Info) Description 02/12/2025 9:00 AM EDT Office Visit [facility] CHC MED & PEDS [address] [place] [address] Olaf Gillespie MD [address] [place], [place] [phone] 04/17/2025 10:10 AM EDT Office Visit [facility] Dental [address] [place] [address] Pamela Poe LLD 9 [place] [address] documented as of this encounter Visit Diagnoses Not on filedocumented in this encounter Additional Health Concerns Assessment Noted Time PHQ-9 Depression Total Score: 6 01/01/20 3:47 PM EST documented as of this encounter Care Teams Wire Bender Relationship Specialty Start Date End Date Olaf Gillespie MD [address] [place] [address] PCP - General Internal Medicine 12/11/24 documented as of this encounter
--- OUTSIDE RECORDS SUMMARY | 2025-01-30 15:36 | XMS_ITS | Encounter Summary ---
Author Organization [employer] Address [address] [place] [address] 7t [place] [address] Care Team Providers Care Automotive Tire Testing Supervisor Name Role Phone Olaf Gillespie MD Primary Care Prov ider Reason for Visit * Reason Comments Filling Encounter Details Date Type Department Care Team (Late st Contact Info) Description 01/22/2025 9:00 AM EST Office Visit [facility] DENTAL [address] [place] [address] Gina Rascon LLD 9 [place] [address] Social History Tobacco Use Types Packs/Day Years [...] PM EDT documented as of this encounter Progress Notes * YESENIA Sr - 01/22/2025 9:00 AM EST Dental procedures in this visit D2392 - RESIN-BASED COMPOSITE - 2 SURF, POSTERIOR 29 DO (Completed) Service provider: YESENIA Sr Billing provider: YESENIA Sr Completion details D2392 - RESIN-BASED COMPOSITE - 2 SURF, POSTERIOR 29 DO (Completed) Dx #29: Recurrent dental caries [place]: 1.00 carp of Septocaine, 4% with Epinephrine 1:100,000. #29 DO sites prepared. Decay/existing mormonism removed. Activa liner placed, Etched, Solo and TPH3 Shade: A3 Finished and polished. Contact verified. Occlusion verified. Concerns: POIG NV: Recall exam documented in this encounter Miscellaneous Notes * Dental Procedure Details - YESENIA Sr - 01/22/2025 9:00 AM EST Dx #29: Recurrent dental caries [place]: 1.00 carp of Septocaine, 4% with Epinephrine 1:100,000. #29 DO sites prepared. Decay/existing mormonism removed. Activa liner placed, Etched, Solo and TPH3 Shade: A3 Finished and polished. Contact verified. Occlusion verified. Concerns: POIG NV: Recall exam documented in this encounter Plan of Treatment Upcoming Encounters Date Type Department Care Team (Late st Contact Info) Description 02/12/2025 9:00 AM EDT Office Visit [facility] MED & PEDS [address] [place] [address] Olaf Gillespie MD 505 [place] [address] 04/17/2025 10:10 AM EDT Office Visit [facility] Dental [address] [place] [address] Pamela Poe LLD 9 [place] [address] documented as of this encounter Procedures Procedure Name Priority Date/Time Associated Diagnosis Comments 29 DO RESIN-BASED COMPOSITE - 2 SURF, POSTERIOR Routine 01/22/2025 9:00 AM EST documented in this encounter Visit Diagnoses Not on filedocumented in this encounter Additional Health Concerns Assessment Noted Time PHQ-9 Depression Total Score: 6 01/01/20 3:47 PM EST documented as of this encounter Care Teams [employer] Tire Testing Supervisor Relationship Specialty Start Date End Date Olaf Gillespie MD [address] [place] [address] PCP - General Internal Medicine 12/11/24 documented as of this encounter
--- OUTSIDE RECORDS SUMMARY | 2025-01-30 15:36 | XMS_ITS | Encounter Summary ---
Author Organization [employer] Address [address] [place] [address] 7 [place] [address] Care Team Providers Care Assistant Hairstylist Name Role Phone Angel Fraser MD Primary Care Provider [phone]- [phone] Olaf Gillespie MD Primary Care Prov ider Encounter Details Date Type Department Care Team (Latest Contact Info) Description 04/11/2019 Abstract [facility] Dental, Provider, DDS Social [...] Description 02/12/2025 9:00 AM EDT Office Visit [facility] CHC MED & PEDS [address] [place] [address] Olaf Gillespie MD [address] [place] [address] 04/17/2025 10:10 AM EDT Office Visit [facility] Dental 70 [place] [address] Pamela Poe LLD 9 [place] [address] documented as of this encounter Visit Diagnoses Not on filedocumented in this encounter Care Teams Assistant Hairstylist Relationship Specialty Start Date End Date Angel Fraser MD [address] [place] [address] PCP - General Internal Medicine 07/05/18 12/19/23 Olaf Gillespie MD [address] [place] [address] PCP - General Internal Medicine 12/11/24 documented as of this encounter
== END 2025-01-30 12:35 | disposition home or self-care (01) ==
LOC: HO.HHCL 12:34
PROVIDERS: Visit Provider General Practice
DX: R10.11 Right upper quadrant pain (principal)
CPT/HCPCS: 36415; 80053; 81001; 83690; 85025

== ENCOUNTER 2025-02-01 12:44 | Outpatient (REF) | payer MEDICAID, SELFPAY ==
--- OUTSIDE RECORDS SUMMARY | 2025-02-01 15:20 | XMS_ITS | Encounter Summary ---
Author Organization [employer] Address [address] [facility] 7t [place] [address] Care Team Providers Care Mentally Impaired Teacher Name Role Phone Olaf Gillespie MD Primary Care Prov ider Reason for Visit * Reason Onset Date Comments Lab Orders 02/01/2025 Encounter Details Date Type Department Care Team ([facility] st Contact Info) Description 02/01/2025 Telephone [facility] MEDICINE [address] [place] [address] Olaf Gillespie MD [address] [place] [address] Lab Orders Social History Tobacco Use Types Packs/Day Years [...] encounter Miscellaneous Notes * Telephone Encounter - Rox Das - 02/01/2025 8:18 AM EST Tc from pt requesting lab work : - Liver Panel - Total Bilirubin contact pt: [phone] documented in this encounter Plan of Treatment Upcoming Encounters Date Type Department Care Team (Late st Contact Info) Description 02/12/2025 9:00 AM EDT Office Visit [facility] CHC MED & PEDS [address] [place] [address] Olaf Gillespie MD [address] [place] [address] 04/17/2025 10:10 AM EDT Office Visit [facility] Dental [address] [place] [address] Pamela Poe LLD [address] [place] [address] documented as of this encounter Visit Diagnoses Not on filedocumented in this encounter Additional Health Concerns Assessment Noted Time PHQ-9 Depression Total Score: 6 01/01/20 3:47 PM EST documented as of this encounter Care Teams Mentally Impaired Teacher Relationship Specialty Start Date End Date Olaf Gillespie MD [address] [place] [address] PCP - General Internal Medicine 12/11/24 documented as of this encounter
--- OUTSIDE RECORDS SUMMARY | 2025-02-01 15:20 | XMS_ITS | Encounter Summary ---
Author Organization [employer] Address [address] [place] [address] 7t [place] [address] Care Team Providers Care Payroll Administrator Name Role Phone Olaf Gillespie MD Primary Care Prov ider Reason for Visit * Reason Onset Date Comments Results 01/30/2025 Encounter Details Date Type Department Care Team ([facility] Contact Info) Description 01/30/2025 Telephone [facility] MEDICINE [address] [place] [address] Cheryle Beltran MD [address] [place] [address] Results Social History Tobacco Use Types Packs/Day [...] encounter Miscellaneous Notes * Telephone Encounter - Mya Roman RN - 01/31/2025 1:43 PM EST Noted. * Telephone Encounter - Mya Roman RN - 01/30/2025 4:25 PM EST TC placed to patient [phone] in regards to below message. Patient reports his US is not tomorrow. Patient reports his US is scheduled for Wednesday. Patient reports he is very concerned about his blood work results because his bilirubin is 3.2. Patient informed the lab did place a note on the blood work results stating slight icterus. RN advised patient this means theres too much bilirubin in his blood. Patient informed bilirubin occurs when the red blood cells break down and the liver normally removes the bilirubin from the blood however in this case the bilirubin levels are elevated. Patient advised PCP will discuss the results with patient at length tomorrow however we wanted to ensurethe patient his BW did not indicate any emergencies. Patient reports the only supplement he is taking is B12 and he drinks herbal teas (green tea). Patient advised RN would notify PCP of US appointment being on Wednesday and also of B12 supplement and herbal teas and patient will receive a call from Dr. Beltran tomorrow. Sending to Dr. Beltran as FYI. * Telephone Encounter - Mikael Phelps - 01/30/2025 3:18 PM EST TC from pt requesting call back regarding Results. Type of results: Labs Date when done: 01/30/25 Facility: [facility] lab Pt very concerned with results/ Received via patient portal Pt seen today by Dr Beltran documented in this encounter Plan of Treatment Upcoming Encounters Date Type Department Care Team ([facility] st Contact Info) Description 02/12/2025 9:00 AM EDT Office Visit [facility] CHC MED & PEDS [address] [place] [address] Olaf Gillespie MD 505 [place] [address] 04/17/2025 10:10 AM EDT Office Visit [facility] Dental [address] [place] [address] Pamela Poe LLD 9 [place] [address] documented as of this encounter Visit Diagnoses Not on filedocumented in this encounter Additional Health Concerns Assessment Noted Time PHQ-9 Depression Total Score: 6 01/01/20 3:47 PM EST documented as of this encounter Care Teams Payroll Administrator Relationship Specialty Start Date End Date Olaf Gillespie MD [address] [place] [address] PCP - General Internal Medicine 12/11/24 documented as of this encounter
--- OUTSIDE RECORDS SUMMARY | 2025-02-01 15:20 | XMS_ITS | Encounter Summary ---
Author Organization [employer] Address [address] [place] [address] 7 [place] [address] Care Team Providers Care Bottle Washer Name Role Phone Angel Fraser MD Primary Care Provider [phone]- [phone] Olaf Gillespie MD Primary Care Prov ider [...] Description 02/12/2025 9:00 AM EDT Office Visit [facility] CHC MED & PEDS [address] [place] [address] Olaf Gillespie MD [address] [place] [address] 04/17/2025 10:10 AM EDT Office Visit [facility] Dental [address] [place] [address] Pamela Poe LLD 9 [place] [address] documented as of this encounter Visit Diagnoses Not on filedocumented in this encounter Care Teams Bottle Washer Relationship Specialty Start Date End Date Angel Fraser MD 505 [place] [address] PCP - General Internal Medicine 07/05/18 12/19/23 Olaf Gillespie MD [address] [place] [address] PCP - General Internal Medicine 12/11/24 documented as of this encounter
--- OUTSIDE RECORDS SUMMARY | 2025-02-01 15:20 | XMS_ITS | Encounter Summary ---
Author Organization [employer] Address [address] [facility] [address] 7t [place] [address] Care Team Providers Care Pedicab Driver Name Role Phone Olaf Gillespie MD Primary Care Prov ider Encounter Details Date Type Department Care Team (Latest Contact Info) Description 01/31/2025 Orders Only [facility] MEDICINE [address] [place] [address] Cheryle Beltran MD [address] [place] [address] Hyperbilirubinemia (Primary Dx) Social History Tobacco Use Types [...] Description 02/12/2025 9:00 AM EDT Office Visit [facility] CHC MED & PEDS [address] [place] [address] Olaf Gillespie MD [address] [place] [address] 04/17/2025 10:10 AM EDT Office Visit [facility] Dental [address] [place] [address] Pamela Poe LLD 9 [place] [address] Scheduled Orders Name Type Priority Associated Diagnoses Orde r Schedule Reticulocyte Count Lab Routine Hyperbilirubinemia Expected: 01/31/2025, Expires: 01/31/2026 Pathologist Review Of Peripheral Smear Lab Routine Hyperbilirubinemia Expected: 01/31/2025 (Approximate), Expires: 01/31/2026 documented as of this encounter Visit Diagnoses Diagnosis Hyperbilirubinemia- Primary Disorders of bilirubin excretion documented in this encounter Additional Health Concerns Assessment Noted Time PHQ-9 Depression Total Score: 6 01/01/20 3:47 PM EST documented as of this encounter Care Teams Pedicab Driver Relationship Specialty Start Date End Date Olaf Gillespie MD [address] [place] [address] PCP - General Internal Medicine 12/11/24 documented as of this encounter
--- OUTSIDE RECORDS SUMMARY | 2025-02-01 15:20 | XMS_ITS | Encounter Summary ---
Author Organization [email or web address] Address [address] [place] [address] 7 [place] [address] Care Team Providers Care Coding Machine Operator Name Role Phone Angel Fraser MD Primary Care Provider [phone]- [phone] Olaf Gillespie MD Primary Care Prov ider [...] Description 02/12/2025 9:00 AM EDT Office Visit [facility] CHC MED & PEDS [address] [place] [address] Olfa Gillespie MD [address] [place] [address] 04/17/2025 10:10 AM EDT Office Visit [facility] Dental [address] [place] [address] Pamela Poe LLD 9 [place] [address] documented as of this encounter Visit Diagnoses Not on filedocumented in this encounter Care Teams Coding Machine Operator Relationship Specialty Start Date End Date Angel Fraser MD [address] [place] [address] PCP - General Internal Medicine 07/05/18 12/19/23 Olaf Gillespie MD [address] [place] [address] PCP - General Internal Medicine 12/11/24 documented as of this encounter
--- OUTSIDE RECORDS SUMMARY | 2025-02-01 15:20 | XMS_ITS | Encounter Summary ---
Author Organization [employer] Address [address] [facility] 7 [place] [address] Care Team Providers Care Outsole Compressor Name Role Phone Olaf Gillespie MD Primary Care Prov ider Reason for Referral * Consultation (Routine) - Closed Specialty Diagnoses / Procedures Referred By Contperla t Referred To Contact Orthopaedic Surgery Diagnoses Right hip pain Angel Fraser MD [address] [place] [address] Phone: tel: fax: [facility] [address] [place] [address] Phone: tel: Referral ID Status Reason Start Date Expiration Date V isits Requested Visits Authorized [id number] Closed Specialty Services Required 05/15/2024 05/15/2025 1 1 Encounter Details Date Type Department Care Team (Late st Contact Info) Description 05/15/2024 Orders Only [facility] CHC MED & PEDS [address] [place] [address] Angel Fraser MD [address] [place] [address] Right hip pain (Primary Dx) Social History [...] Description 02/12/2025 9:00 AM EDT Office Visit [facility] CHC MED & PEDS [address] [place] [address] Olaf Gillespie MD [address] [place] [address] 04/17/2025 10:10 AM EDT Office Visit [facility] Dental [address] [place] [address] Pamela Poe LLD [address] [place] [address] Scheduled Referrals Name Type Priority Associated Diagnoses Order Schedule Referral to Orthopaedic Surgery Outpatient Referral Routine Right hip pain Expected: 05/15/2024 (Approximate), Expires: 05/15/2025 documented as of this encounter Visit Diagnoses Diagnosis Right hip pain- Primary Pain in joint, pelvic region and thigh documented in this encounter Care Teams Outsole Compressor Relationship Specialty Start Date End Date Olaf Gillespie MD [address] [place] [address] PCP - General Internal Medicine 12/11/24 documented as of this encounter
--- OUTSIDE RECORDS SUMMARY | 2025-02-01 15:20 | XMS_ITS | Encounter Summary ---
Author Organization [employer] Address [address] [place] [address] 7 [place] [address] Care Team Providers Care Senior Mainframe Developer Name Role Phone Angel Fraser MD Primary Care Provider +1- [phone] Olaf Gillespie MD Primary Care Prov ider [...] Description 02/12/2025 9:00 AM EDT Office Visit [facility] CHC MED & PEDS [address] [place] [address] Olaf Gillespie MD [address] [place] [address] 04/17/2025 10:10 AM EDT Office Visit [facility] Dental [address] [place] [address] Pamela Poe LLD 9 [place] [address] documented as of this encounter Visit Diagnoses Not on filedocumented in this encounter Care Teams Senior Mainframe Developer Relationship Specialty Start Date End Date Angel Fraser MD [address] [place] [address] PCP - General Internal Medicine 07/05/18 12/19/23 Olaf Gillespie MD [address] [place] [address] PCP - General Internal Medicine 12/11/24 documented as of this encounter
--- OUTSIDE RECORDS SUMMARY | 2025-02-01 15:20 | XMS_ITS | Encounter Summary ---
Author Organization [employer] Address [address] [place] [address] 7t [place] [address] Care Team Providers Care Telecommunications Sales Representative Name Role Phone Olaf Gillespie MD Primary Care Prov ider Reason for Referral * Imaging (Urgent) - Authorized Specialty Diagnoses / Procedures Referred By Contac t Referred To Contact Radiology Diagnoses Right upper quadrant pain Procedures US Abdomen Complete Cheryle Beltran MD [address] [place] [address] Phone: tel: fax: [address] Phone: tel: fax: Referral ID Status Reason Start Date Expiration Date V isits Requested Visits Authorized [id number] Authorized 01/30/2025 01/30/2026 1 1 Reason for Visit * Reason Comments sick visit Encounter Details Date Type Department Care Team (Late st Contact Info) Description 01/30/2025 11:15 AM EST Office Visit [facility] MEDICINE [address] [place], [place] [phone] Cheryle Beltran MD [address] [place], [place] [phone] Right upper quadrant pain (Primary Dx) Social [...] Problem List Diagnosis Chronic alcoholism in remission ([facility]) Encounter for medical examination to establish [...] Description 02/12/2025 9:00 AM EDT Office Visit [facility] CHC MED & PEDS [address] [place] [address] VelizOlaf Jose MD [address] [place] [address] 04/17/2025 10:10 AM EDT Office Visit [facility] Dental [address] [place] [address] Pamela Poe LLD 9 [place] [address] Scheduled Orders Name Type Priority Associated Diagnoses [...] EST) Lipase 20 8 - 78 U/L [facility] Blood Venous blood specimen / Unknown 01/30/2025 12:38 PM EST 01/30/2025 1:14 PM EST us Cheryle Beltran MD LAB BLOOD ORDERABLES Final Res ult [facility] [address] [place] [phone] * CBC auto differential (01/30/2025 12:38 PM EST) Pathologist [facility] White Blood Count 8.1 4.8 - 10.8 X10*3/uL [facility] Red Blood Count 5.23 4.60 - 5.80 X10*6/uL [facility] Hemoglobin 15.9 14.0 - 18.0 g/dl [facility] Hematocrit 46.8 42.0 - 52.0 % [facility] Mean Corpuscular Volume 89.5 80.0 - 98.0 fL [facility] Mean Corpuscular Hemoglobin 30.4 27.0 - 33.0 pg [facility] Mean Corpuscular HGB Conc 34.0 31.0 - 36.0 g/dl [facility] Red Cell Distribution Width 13.0 11.0 - 16.0 % [facility] Platelet Count 301 160 - 400 X10*3/uL [facility] Mean Platelet Volume 9.5 9.4 - 12.4 fL [facility] Neutrophils Percent Auto 66.1 45 - 73 % [facility] Imm Gran Pct Auto 0.4 0.0 - 0.4 % [facility] Lymphocytes Percent Auto 24.8 20 - 40 % [facility] Monocytes Percent Auto 8.2 2 - 11 % [facility] Eosinophils Percent Auto 0.0 0 - 4 % [facility] Basophils Percent Auto 0.5 0 - 2 % [facility] NRBC Pct Auto 0.0 0.0 - 0.2 /100WBC [facility] Neutrophils Absolute Auto 5.3 2.0 - 8.3 x10*3/uL [facility] Imm Gran Abs Auto 0.03 0.00 - 0.03 X10*3/uL [facility] Lymphocytes Absolute Auto 2.0 1.2 - 4.9 X10*3/uL [facility] Monocytes Absolute Auto 0.7 0.1 - 1.2 X10*3/uL [facility] Eosinophils Absolute Auto 0.0 0.0 - 0.4 X10*3/uL [facility] Basophils Absolute Auto 0.0 0.0 - 0.2 X10*3/uL [facility] NRBC Abs Auto 0.000 0.0 - 0.012 X10*3/uL [facility] Blood Venous blood specimen / Unknown 01/30/2025 12:38 PM EST 01/30/2025 1:14 PM EST us Cheryle Beltran MD LAB BLOOD ORDERABLES Final Res ult [facility] [address] [place] [phone] * (ABNORMAL) Comprehensive Metabolic Panel (01/30/2025 12:38 PM EST) Sodium 140 135 - 145 mmol/L [facility] Potassium 3.8 3.3 - 5.1 mmol/L [facility] Chloride 106 96 - 108 mmol/L [facility] Carbon Dioxide 25 22 - 29 mmol/L [facility] Anion Gap 13 12 - 20 [facility] Urea Nitrogen (BUN) 4(L) 9 - 16 mg/dL [facility] Creatinine, Serum 0.77 0.5 - 1.4 mg/dL [facility] Estimated Glomerular Filt Rate >60 [facility] Comment:Chronic Kidney Disea se: Estimated GFR < 60 mL/min/[id number] Kidney Disease: Estimated GFR < 15 mL/min/1.73m2 Glucose 102 60 - 115 mg/dL [facility] Calcium 9.4 8.4 - 10.2 mg/dL [facility] Bilirubin, Total 3.2(H) 0.0 - 1.0 mg/dL [facility] Comment:Slight Icterus. Aspartate Amino Transferase 38(H) 5 - 37 U/L [facility] Alanine Aminotransferase 31 0 - 40 U/L [facility] Total Protein 8.0 6.5 - 8.0 g/dL [facility] Albumin Level 4.7 3.5 - 5.0 g/dL [facility] Alkaline Phosphatase 79 39 - 117 U/L [facility] Blood Venous blood specimen / Unknown 01/30/2025 12:38 PM EST 01/30/2025 1:14 PM EST us Cheryle Beltran MD LAB BLOOD ORDERABLES Final Res ult [facility] [address] [place] [phone] * Urinalysis, Complete, with Reflex to Culture (01/30/2025 12:38 PM EST) Color Urine Yellow [facility] Appearance Urine Clear [facility] PH 6.5 5.0 - 9.0 [facility] Glucose Urine UA Negative Negative mg/dL [facility] Urine Blood Negative Negative [facility] Specific [place] - Urine 1.010 1.005 - 1.025 [facility] Urine Protein Negative Neg-Trace mg/dL [facility] Urine Ketones 40 Negative mg/dL [facility] Nitrite Urine Negative Negative [facility] Leukocyte Esterase Urine Negative Negative [facility] RBC Urine 0-2 0 - 2 /HPF [facility] Urine WBC 0-5 0 - 5 /HPF [facility] Urine Squamous Epithelial Cell 0-2 0 - 2 /HPF [facility] Urine Bacteria None Seen None Seen [facility] Hyaline Casts, Urine 0-2 0 - 2 /LPF [facility] Urine 01/30/2025 12:3 8 PM EST 01/30/2025 1:10 PM EST Narrative [facility] - 01/30/2025 1:40 PM EST Urine, Clean Catch us Cheryle Beltran MD LAB URINE ORDERABLES Final Res ult [facility] [address] [place] [phone] documented in this encounter Visit Diagnoses Diagnosis Right upper quadrant pain- Primary Abdominal pain, right upper quadrant documented in this encounter Additional Health Concerns Assessment Noted Time PHQ-9 Depression Total Score: 6 01/01/20 3:47 PM EST documented as of this encounter Care Teams Telecommunications Sales Representative Relationship Specialty Start Date End Date Olaf Gillespie MD [address] [place] [phone] PCP - General Internal Medicine 12/11/24 documented as of this encounter
--- OUTSIDE RECORDS SUMMARY | 2025-02-01 15:20 | XMS_ITS | Encounter Summary ---
Author Organization [email or web address] Address [address] [place] [address] 7 [place] [address] Care Team Providers Care Telegraph Equipment Maintainer Name Role Phone Angel Fraser MD Primary Care Provider [phone] Olaf Gillespie MD Primary Care Prov ider [...] 9:00 AM EDT Office Visit [facility] CHC MED & PEDS [address] [place] [address] Olaf Gillespie MD [address] [place] [address] 04/17/2025 10:10 AM EDT Office Visit [facility] Dental [address] [place] [address] Pamela Poe LLD 9 [place] [address] documented as of this encounter Visit Diagnoses Not on filedocumented in this encounter Care Teams Telegraph Equipment Maintainer Relationship Specialty Start Date End Date Angel Fraser MD [address] [place] [address] PCP - General Internal Medicine 07/05/18 12/19/23 Olaf Gillespie MD [address] [place] [address] PCP - General Internal Medicine 12/11/24 documented as of this encounter
--- OUTSIDE RECORDS SUMMARY | 2025-02-01 15:21 | XMS_ITS | Encounter Summary ---
Author Organization [employer] Address [address] [place] [address] 7t [place] [address] Care Team Providers Care Air Brake Tester Name Role Phone Olaf Gillespie MD Primary Care Prov ider Reason for Visit * Reason Comments Filling Encounter Details Date Type Department Care Team (Late st Contact Info) Description 01/22/2025 9:00 AM EST Office Visit [facility] DENTAL [address] [place] [address] Gina Rascon LLD [address] [place] [address] Social History Tobacco Use Types Packs/Day Years [...] Epinephrine 1:100,000. #29 DO sites prepared. Decay/existing shinto removed. Activa liner placed, Etched, Solo and TPH3 Shade: A3 Finished and polished. Contact verified. Occlusion verified. Concerns: POIG NV: Recall exam documented in this encounter Miscellaneous Notes * Dental Procedure Details - YESENIA Sr - 01/22/2025 9:00 AM EST Dx #29: Recurrent dental caries [place]: 1.00 carp of Septocaine, 4% with Epinephrine 1:100,000. #29 DO sites prepared. Decay/existing shinto removed. Activa liner placed, Etched, Solo and TPH3 Shade: A3 Finished and polished. Contact verified. Occlusion verified. Concerns: POIG NV: Recall exam documented in this encounter Plan of Treatment Upcoming Encounters Date Type Department Care Team (Late st Contact Info) Description 02/12/2025 9:00 AM EDT Office Visit [facility] MED & PEDS [address] [place] [address] Olaf Gillespie MD [address] [place] [address] 04/17/2025 10:10 AM EDT Office Visit [facility] Dental [address] [place] [address] Pamela Poe LLD 9 [place] [address] documented as of this encounter Procedures Procedure Name Priority Date/Time Associated Diagnosis Comments 29 DO RESIN-BASED COMPOSITE - 2 SURF, POSTERIOR Routine 01/22/2025 9:00 AM EST documented in this encounter Visit Diagnoses Not on filedocumented in this encounter Additional Health Concerns Assessment Noted Time PHQ-9 Depression Total Score: 6 01/01/20 3:47 PM EST documented as of this encounter Care Teams Air Brake Tester Relationship Specialty Start Date End Date Olaf Gillespie MD [address] [place] [phone] PCP - General Internal Medicine 12/11/24 documented as of this encounter
--- OUTSIDE RECORDS SUMMARY | 2025-02-01 15:21 | XMS_ITS | Clinical Summary ---
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 Date Type Department Care Team Description 02/01/[address] [address] Olaf Gillespie MD Lab Orders 01/31/2025 Orders Only [address] [address] Cheryle Beltran MD Hyperbilirubinemia (Primary Dx) 01/30/2025 11:15 AM EST Office Visit [address] [address] Cheryle Beltran MD Right upper quadrant pain (Primary Dx) 01/30/[address] [address] Cheryle Beltran MD Results 01/30/[address] [address] Olaf Gillespie MD Nurse Triage 01/22/2025 9:00 AM EST Office Visit [facility] DENTAL [address] [place] [address] Gina Rascon LLD 01/01/2025 Travel 12/25/2024 10:00 AM EST Office Visit [facility] DENTAL [address] [place] [address] Gina Rascon, LLD 12/21/2024 1:15 PM EST Telemedicine [facility] MED & PEDS [address] [place], [place] [phone] Olaf Gillespie MD Anxiety (Primary Dx); Laboratory test 12/21/2024 Travel 12/21/[address] [address] Olaf Gillespie MD Results 12/19/2024 5:00 PM EST Office Visit [facility] W[facility]IN [facility] [address] [place] [phone] Nataliia Amos MD [facility] (Primary Dx); Chronic alcoholism in remission ([facility]/HCC) 12/19/2024 Telephone [facility] MED & PEDS [address] [place] [address] Olaf Gillespie MD Walk-In 12/19/2024 Travel 11/20/2024 9:45 AM EST Telemedicine [facility] CHC MED & PEDS [address] [place] [address] Olaf Gillespie MD Encounter for medical examination to establish care (Primary Dx) 11/20/2024 Travel 11/08/[address] [facility] MEDICINE [address] [place] [address] Olaf Gillespie MD New pt appt from [...] AM EDT Office Visit [facility] CHC MED & PEDS [address] [place], [place] [phone] Olaf Gillespie MD [address] [place] [address] 04/17/2025 10:10 AM EDT Office Visit [facility] Dental [address] [place] [address] Pamela Poe LLD 9 [place] [address] Health Maintenance Due Date Last Done Comments [...] Tdap) 03/15/2024 03/15/2014 COVID-19 Vaccine ( - season) 2024 Influenza Vaccine (#1) 2024 Dental X-Ray: Full Mouth 10/04/2024 10/03/2021, 0304/2017 Dental Oral Exam 04/17/2025 10/17/2024, , 10/12/2023, Additional history exists Dental Prophylaxis 04/17/2025 10/17/2024, 0 04/12/2024, 10/12/2023, Additional history exists Dental X-Ray: Bitewings 10/18/2025 10/17/20 24, 04/12/2024, 05/13/2023, Additional history exists Depression Screening 01/01/2026 01/01/2025, 01/01/20 25 Tobacco Screening 01/30/2026 01/30/2025 Zoster Vaccines (1 [...] (01/30/2025 12:38 PM EST) Color Urine Yellow [facility] Appearance Urine Clear [facility] PH 6.5 5.0 - 9.0 [facility] Glucose Urine UA Negative Negative mg/dL [facility] Urine Blood Negative Negative [facility] Specific [place] - Urine 1.010 1.005 - 1.025 [facility] Urine Protein Negative Neg-Trace mg/dL [facility] Urine Ketones 40 Negative mg/dL [facility] Nitrite Urine Negative Negative [facility] Leukocyte Esterase Urine Negative Negative [facility] RBC Urine 0-2 0 - 2 /HPF [facility] Urine WBC 0-5 0 - 5 /HPF [facility] Urine Squamous Epithelial Cell 0-2 0 - 2 /HPF [facility] Urine Bacteria None Seen None Seen [facility] Hyaline Casts, Urine 0-2 0 - 2 /LPF [facility] Urine 01/30/2025 12:3 8 PM EST 01/30/2025 1:10 PM EST Narrative [facility] - 01/30/2025 1:40 PM EST Urine, Clean Catch us Cheryle Beltran MD LAB URINE ORDERABLES Final Res ult [facility] [address] [place] [address] [phone] * CBC auto differential (01/30/2025 12:38 PM EST) White Blood Count 8.1 4.8 - 10.8 X10*3/uL [facility] Red Blood Count 5.23 4.60 - 5.80 X10*6/uL [facility] Hemoglobin 15.9 14.0 - 18.0 g/dl [facility] Hematocrit 46.8 42.0 - 52.0 % [facility] Mean Corpuscular Volume 89.5 80.0 - 98.0 fL [facility] Mean Corpuscular Hemoglobin 30.4 27.0 - 33.0 pg [facility] Mean Corpuscular HGB Conc 34.0 31.0 - 36.0 g/dl [facility] Red Cell Distribution Width 13.0 11.0 - 16.0 % [facility] Platelet Count 301 160 - 400 X10*3/uL [facility] Mean Platelet Volume 9.5 9.4 - 12.4 fL [facility] Neutrophils Percent Auto 66.1 45 - 73 % [facility] Imm Gran Pct Auto 0.4 0.0 - 0.4 % [facility] Lymphocytes Percent Auto 24.8 20 - 40 % [facility] Monocytes Percent Auto 8.2 2 - 11 % [facility] Eosinophils Percent Auto 0.0 0 - 4 % [facility] Basophils Percent Auto 0.5 0 - 2 % [facility] NRBC Pct Auto 0.0 0.0 - 0.2 /100WBC [facility] Neutrophils Absolute Auto 5.3 2.0 - 8.3 x10*3/uL [facility] Imm Gran Abs Auto 0.03 0.00 - 0.03 X10*3/uL [facility] Lymphocytes Absolute Auto 2.0 1.2 - 4.9 X10*3/uL [facility] Monocytes Absolute Auto 0.7 0.1 - 1.2 X10*3/uL [facility] Eosinophils Absolute Auto 0.0 0.0 - 0.4 X10*3/uL [facility] Basophils Absolute Auto 0.0 0.0 - 0.2 X10*3/uL [facility] NRBC Abs Auto 0.000 0.0 - 0.012 X10*3/uL [facility] Blood Venous blood specimen / Unknown 01/30/2025 12:38 PM EST 01/30/2025 1:14 PM EST Cheryle Beltran MD LAB BLOOD ORDERABLES Final Res ult Performing Organization Address City/[facility]/ZIP Co de Phone Number [facility] [address] [place] [phone] * Lipase (01/30/2025 12:38 PM EST) Lipase 20 8 - 78 U/L [facility] Blood Venous blood specimen / Unknown 01/30/2025 12:38 PM EST 01/30/2025 1:14 PM EST Cheryle Beltran MD LAB BLOOD ORDERABLES Final Res ult Performing Organization Address [facility] de Phone Number [facility] [address] [place] [phone] * (ABNORMAL) Comprehensive Metabolic Panel (01/30/2025 12:38 PM EST) Sodium 140 135 - 145 mmol/L [facility] Potassium 3.8 3.3 - 5.1 mmol/L [facility] Chloride 106 96 - 108 mmol/L [facility] Carbon Dioxide 25 22 - 29 mmol/L [facility] Anion Gap 13 12 - 20 [facility] Urea Nitrogen (BUN) 4(L) 9 - 16 mg/dL [facility] Creatinine, Serum 0.77 0.5 - 1.4 mg/dL [facility] Estimated Glomerular Filt Rate >60 [facility] Comment:Chronic Kidney Disea se: Estimated GFR < 60 mL/min/[id number] Kidney Disease: Estimated GFR < 15 mL/min/1.73m2 Glucose 102 60 - 115 mg/dL [facility] Calcium 9.4 8.4 - 10.2 mg/dL [facility] Bilirubin, Total 3.2(H) 0.0 - 1.0 mg/dL [facility] Comment:Slight Icterus. Aspartate Amino Transferase 38(H) 5 - 37 U/L [facility] Alanine Aminotransferase 31 0 - 40 U/L [facility] Total Protein 8.0 6.5 - 8.0 g/dL [facility] Albumin Level 4.7 3.5 - 5.0 g/dL [facility] Alkaline Phosphatase 79 39 - 117 U/L [facility] Blood Venous blood specimen / Unknown 01/30/2025 12:38 PM EST 01/30/2025 1:14 PM EST Cheryle Beltran MD LAB BLOOD ORDERABLES Final Res ult Performing Organization Address [facility]/ZIP Co de Phone Number [facility] [address] [place] [phone] * Hepatitis C Antibody with Reflex to HCV, RNA, Quantitative, Real-Time PCR (12/20/2024 4:51 PM EST) Pathologist [facility] Hepatitis C Antibody Nonreactive Nonreactive [facility] Comment:Antibodies to HCV no t detected; does not exclude early acuteHCV infection. Blood Venous blood specimen / Unknown 12/20/2024 4:51 PM EST 12/20/2024 5:35 PM EST us Nataliia Amos MD LAB BLOOD ORDERABLES Final Result Performing Organization Address [facility] Co de Phone Number [facility] [address] [place] [phone] * (ABNORMAL) Hepatic Function Panel (12/20/2024 4:51 PM EST) Bilirubin, Total 1.6(H) 0.0 - 1.0 mg/dL [facility] Comment:Slight Icterus. Bilirubin, Direct 0.5 0.0 - 0.5 mg/dL [facility] Comment:Slight Icterus. Aspartate Amino Transferase 26 5 - 37 U/L [facility] Comment:Slight Hemolysis.Int erpret result with caution. Alanine Aminotransferase 18 0 - 40 U/L [facility] Total Protein 7.8 6.5 - 8.0 g/dL [facility] Albumin Level 4.5 3.5 - 5.0 g/dL [facility] Alkaline Phosphatase 65 39 - 117 U/L [facility] Blood Venous blood specimen / Unknown 12/20/2024 4:51 PM EST 12/20/2024 5:35 PM EST us Nataliia Amos MD LAB BLOOD ORDERABLES Final Result [facility] [address] [place] [phone] from Last 3 Months Insurance [facility] C3 DENTAL-[facility] MEDICAID STAND ADULT Care Teams Tilesetter Relationship Specialty Start Date End Date Olaf Gillespie MD [address] [place] [phone] PCP - General Internal Medicine 12/11/24
--- OUTSIDE RECORDS SUMMARY | 2025-02-01 15:21 | XMS_ITS | Encounter Summary ---
Author Organization [employer] Address [address] [facility] 7t [place] [address] Care Team Providers Care Lead Technologist In Cytogenetics Name Role Phone Olaf Gillespie MD Primary Care Prov ider Reason for Visit * Reason Onset Date Comments Nurse Triage 01/30/2025 Encounter Details Date Type Department Care Team ([facility] st Contact Info) Description 01/30/2025 Telephone [facility] MEDICINE [address] [place] [address] Olaf Gillespie MD [address] [place] [phone] Nurse Triage Social History Tobacco Use Types [...] come and go. Had been seen in [facility] on 12/19/24 and dietary recommendations discussed. Patient [...] from 05/15/24 and hours and availablility of [facility] today and tomorrow.Patient verbalized understanding.Reviewed with [...] caller accepted this outcome. Contact pt at [phone] documented in this encounter Plan of Treatment Upcoming Encounters Date Type Department Care Team ([facility] st Contact Info) Description 02/12/2025 9:00 AM EDT Office Visit [facility] CHC MED & PEDS [address] [place], [place] [phone] Olaf Gillespie MD [address] [place] [address] 04/17/2025 10:10 AM EDT Office Visit [facility] Dental [address] [place] [address] Pamela Poe LLD 9 [place] [address] documented as of this encounter Visit Diagnoses Not on filedocumented in this encounter Additional Health Concerns Assessment Noted Time PHQ-9 Depression Total Score: 6 01/01/20 3:47 PM EST documented as of this encounter Care Teams Lead Technologist In Cytogenetics Relationship Specialty Start Date End Date Olaf Gillespie MD [address] [place], [place] [phone] PCP - General Internal Medicine 12/11/24 documented as of this encounter
[2025-02-01 16:42] LABS: Immature Retic Fraction 6.9 % (2.3-13.4); Retic HGB Equivalent 35.7 pg (30.0-35.0); Reticulocyte Percent 1.3 % (0.5-1.8); Reticulocytes Absolute 0.066 X10*6/uL (0.026-0.095)
== END 2025-02-01 12:45 | disposition home or self-care (01) ==
LOC: HO.HHCL 12:44
PROVIDERS: Visit Provider General Practice
DX: E80.6 Other disorders of bilirubin metabolism (principal)
CPT/HCPCS: 85045

== ENCOUNTER 2025-02-05 09:14 | Outpatient (REF) | payer MEDICAID, SELFPAY ==
--- NOTE | ~2025-02-05 | US_ITS ---
EXAMINATION: US ABDOMEN COMPLETE CLINICAL INFORMATION: Intermittent pain, rule out gallstones. COMPARISON: None available. TECHNIQUE: Real-time imaging of the abdominal viscera. FINDINGS: PANCREAS: Visualized portions are unremarkable. ABDOMINAL AORTA: The proximal, mid, and distal segments are normal in caliber. INFERIOR VENA CAVA: Visualized portions are normal. LIVER: The liver is normal in size. Right lower lobe measures 14.6 cm. The liver contour is normal. Parenchymal echogenicity is normal. No focal hepatic lesion. There is no intrahepatic biliary duct dilatation seen. GALLBLADDER: The gallbladder is physiologically distended without evidence of stones, sludge, polyps, wall thickening or pericholecystic fluid. COMMON BILE DUCT: Normal in caliber measuring 0.3 cm in diameter. RIGHT KIDNEY: No hydronephrosis. No renal calculi or focal parenchymal lesions. The kidney measures 9.6 cm in maximum dimension. LEFT KIDNEY: No hydronephrosis. No renal calculi or focal parenchymal lesions. The kidney measures 10.3 cm in maximum dimension. SPLEEN: The spleen measures 10.1 cm in maximum dimension. FREE FLUID: None. US/US abdomen complete IMPRESSION: Normal abdominal sonogram. Electronically signed by: Jorge Boyce MD 02/05/2025 09:53 AM EDT
--- OUTSIDE RECORDS SUMMARY | 2025-02-05 09:52 | XMS_ITS | Encounter Summary ---
Author Organization [employer] Address [address] [place] [address] 7 [place] [address] Care Team Providers Care Rebar Worker Name Role Phone Angel Fraser MD Primary Care Provider [phone]- [phone] Olaf Gillespie MD Primary Care Prov ider [...] AM EDT Office Visit [facility] CHC MED & PEDS [address] [place] [address] Olaf Gillespie MD [address] [place] [address] 04/17/2025 10:10 AM EDT Office Visit [facility] Dental [address] [place] [address] Pamela Poe LLD [address] [place] [address] documented as of this encounter Visit Diagnoses Not on filedocumented in this encounter Care Teams Rebar Worker Relationship Specialty Start Date End Date Angel Fraser MD [address] [place] [address] PCP - General Internal Medicine 07/05/18 12/19/23 Olaf Gillespie MD [address] [place] [address] PCP - General Internal Medicine 12/11/24 documented as of this encounter
--- OUTSIDE RECORDS SUMMARY | 2025-02-05 09:52 | XMS_ITS | Clinical Summary ---
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 [employer] Chronic alcoholism in remission 05/15/2024 Assessment & [...] Type Department Care Team Description 02/01/[address] [address] Olaf Gillespie MD Lab Orders 01/31/2025 Orders Only [address] [address] Cheryle Beltran MD Hyperbilirubinemia (Primary Dx) 01/30/2025 11:15 AM EST Office Visit [address] [address] Cheryle Beltran MD Right upper quadrant pain (Primary Dx) 01/30/[address] [address] Cheryle Beltran MD Results 01/30/[address] [address] Olaf Gillespie MD Nurse Triage 01/22/2025 9:00 AM EST Office Visit [facility] [address] [place] [address] Gina Rascon LLD 01/01/2025 Travel 12/25/2024 10:00 AM EST Office Visit [facility] [address] [place] [address] Gina Rascon, LLD 12/21/2024 1:15 PM EST Telemedicine [facility] [address] [place], [place] [phone] Olaf Gillespie MD Anxiety (Primary Dx); Laboratory test 12/21/2024 Travel 12/21/[address] [address] Olaf Gillespie MD Results 12/19/2024 5:00 PM EST Office Visit [facility] [address] [place] [phone] Nataliia Amso MD [facility] (Primary Dx); Chronic alcoholism in remission ([facility]/H[facility]) 12/19/2024 Telephone [facility] [address] [place] [address] Olaf Gillespie MD Walk-In 12/19/2024 Travel 11/20/2024 9:[address] [facility] [address] [place] [address] Olaf Gillespie MD Encounter for medical examination to establish care (Primary Dx) 11/20/2024 Travel 11/08/[address] [facility] [address] [place] [address] Olaf Gillespie MD New pt appt from [...] Description 02/12/2025 9:00 AM EDT Office Visit [facility] [address] [place], [place] [phone] Olaf Gillespie MD [address] [place] [address] 04/17/2025 10:10 AM EDT Office Visit [facility] [address] [place] [address] Pamela Poe LLD 9 [place] [address] Health Maintenance Due Date Last Done Comments [...] Procedure Name Priority Date/Time Associated Diagnosis Comments PATHOLOGIST REVIEW - CBC Routine 02/01/2025 12:47 PM EST Hyperbilirubinemia RETICULOCYTE COUNT Routine 02/01/2025 12 :47 PM EST Hyperbilirubinemia LIPASE Routine 01/30/2025 12:38 PM EST Right [...] Recently Relevant to Health Maintenance Results * Pathologist Review Of Peripheral Smear (02/01/2025 12:47 PM EST) Pathologist Review - CBC SEE NOTE [facility] Comment:Red blood cell echin ocytes are present (physiologic versusartifact). Otherwise, peripheral blood elements are normalappearing.- David Ritchie M.D. Pathology Blood Venous blood specimen / Unknown 02/01/2025 12:47 PM EST 02/01/2025 4:19 PM EST us Cheryle Beltran MD LAB BLOOD ORDERABLES Final Res ult [facility] [address] [place] [phone] * (ABNORMAL) Reticulocyte Count (02/01/2025 12:47 PM EST) Reticulocytes Absolute 0.066 0.026 - 0.095 X10*6/uL [facility] Immature Retic Fraction 6.9 2.3 - 13.4 % [facility] Retic HGB Equivalent 35.7(H) 30.0 - 35.0 pg [facility] Reticulocyte Percent 1.3 0.5 - 1.8 % [facility] Blood Venous blood specimen / Unknown 02/01/2025 12:47 PM EST 02/01/2025 4:19 PM EST Cheryle Beltran MD LAB BLOOD ORDERABLES Final Res ult Performing Organization Address [facility] de Phone Number [facility] [address] [place] [address] [phone] * Urinalysis, Complete, with Reflex to Culture (01/30/2025 12:38 PM EST) Color Urine Yellow [facility] Appearance Urine Clear [facility] PH 6.5 5.0 - 9.0 [facility] Glucose Urine UA Negative Negative mg/dL [facility] Urine Blood Negative Negative [facility] Specific [place]vin - Urine 1.010 1.005 - 1.025 [facility] Urine Protein Negative Neg-Trace mg/dL [facility] Urine Ketones 40 Negative mg/dL [facility] Nitrite Urine Negative Negative [facility] Leukocyte Esterase Urine Negative Negative [facility] RBC Urine 0-2 0 - 2 /HPF [facility] Urine WBC 0-5 0 - 5 /HPF [facility] Urine Squamous Epithelial Cell 0-2 0 - 2 /HPF [facility] Urine Bacteria None Seen None Seen [facility] Hyaline Casts, Urine 0-2 0 - 2 /LPF [facility] Urine 01/30/2025 12:3 8 PM EST 01/30/2025 1:10 PM EST Narrative [facility] - 01/30/2025 1:40 PM EST Urine, Clean Catch Cheryle Beltran MD LAB URINE ORDERABLES Final Res ult Performing Organization Address [facility] Co de Phone Number [facility] [address] [place] [address] [phone] * CBC auto differential (01/30/2025 12:38 PM EST) White Blood Count 8.1 4.8 - 10.8 X10*3/uL [facility] Red Blood Count 5.23 4.60 - 5.80 X10*6/uL [facility] Hemoglobin 15.9 14.0 - 18.0 g/dl [facility] Hematocrit 46.8 42.0 - 52.0 % [facility] Mean Corpuscular Volume 89.5 80.0 - 98.0 fL [facility] Mean Corpuscular Hemoglobin 30.4 27.0 - 33.0 pg [facility] Mean Corpuscular HGB Conc 34.0 31.0 - 36.0 g/dl [facility] Red Cell Distribution Width 13.0 11.0 - 16.0 % [facility] Platelet Count 301 160 - 400 X10*3/uL [facility] Mean Platelet Volume 9.5 9.4 - 12.4 fL [facility] Neutrophils Percent Auto 66.1 45 - 73 % [facility] Imm Gran Pct Auto 0.4 0.0 - 0.4 % [facility] Lymphocytes Percent Auto 24.8 20 - 40 % [facility] Monocytes Percent Auto 8.2 2 - 11 % [facility] Eosinophils Percent Auto 0.0 0 - 4 % [facility] Basophils Percent Auto 0.5 0 - 2 % [facility] NRBC Pct Auto 0.0 0.0 - 0.2 /100WBC [facility] Neutrophils Absolute Auto 5.3 2.0 - 8.3 x10*3/uL [facility] Imm Gran Abs Auto 0.03 0.00 - 0.03 X10*3/uL [facility] Lymphocytes Absolute Auto 2.0 1.2 - 4.9 X10*3/uL [facility] Monocytes Absolute Auto 0.7 0.1 - 1.2 X10*3/uL [facility] Eosinophils Absolute Auto 0.0 0.0 - 0.4 X10*3/uL [facility] Basophils Absolute Auto 0.0 0.0 - 0.2 X10*3/uL [facility] NRBC Abs Auto 0.000 0.0 - 0.012 X10*3/uL [facility] Blood Venous blood specimen / Unknown 01/30/2025 12:38 PM EST 01/30/2025 1:14 PM EST Cheyrle Beltran MD LAB BLOOD ORDERABLES Final Res ult Performing Organization Address City/[facility]/ZIP Co de Phone Number [facility] [address] [place] [phone] * Lipase (01/30/2025 12:38 PM EST) Lipase 20 8 - 78 U/L [facility] Blood Venous blood specimen / Unknown 01/30/2025 12:38 PM EST 01/30/2025 1:14 PM EST Cheryle Beltran MD LAB BLOOD ORDERABLES Final Res ult Performing Organization Address City/[facility]/ZIP Co de Phone Number [facility] [address] [place] [phone] * (ABNORMAL) Comprehensive Metabolic Panel (01/30/2025 12:38 PM EST) Sodium 140 135 - 145 mmol/L [facility] Potassium 3.8 3.3 - 5.1 mmol/L [facility] Chloride 106 96 - 108 mmol/L [facility] Carbon Dioxide 25 22 - 29 mmol/L [facility] Anion Gap 13 12 - 20 [facility] Urea Nitrogen (BUN) 4(L) 9 - 16 mg/dL [facility] Creatinine, Serum 0.77 0.5 - 1.4 mg/dL [facility] Estimated Glomerular Filt Rate >60 [facility] Comment:Chronic Kidney Disea se: Estimated GFR < 60 mL/min/[id number] Kidney Disease: Estimated GFR < 15 mL/min/1.73m2 Glucose 102 60 - 115 mg/dL [facility] Calcium 9.4 8.4 - 10.2 mg/dL [facility] Bilirubin, Total 3.2(H) 0.0 - 1.0 mg/dL [facility] Comment:Slight Icterus. Aspartate Amino Transferase 38(H) 5 - 37 U/L [facility] Alanine Aminotransferase 31 0 - 40 U/L [facility] Total Protein 8.0 6.5 - 8.0 g/dL [facility] Albumin Level 4.7 3.5 - 5.0 g/dL [facility] Alkaline Phosphatase 79 39 - 117 U/L [facility] Blood Venous blood specimen / Unknown 01/30/2025 12:38 PM EST 01/30/2025 1:14 PM EST Cheryle Beltran MD LAB BLOOD ORDERABLES Final Res ult Performing Organization Address [facility] Co de Phone Number [facility] [address] [place] [phone] * Hepatitis C Antibody with Reflex to HCV, RNA, Quantitative, Real-Time PCR (12/20/2024 4:51 PM EST) Hepatitis C Antibody Nonreactive Nonreactive [facility] Comment:Antibodies to HCV no t detected; does not exclude early acuteHCV infection. Blood Venous blood specimen / Unknown 12/20/2024 4:51 PM EST 12/20/2024 5:35 PM EST Nataliia Amos MD LAB BLOOD ORDERABLES Final Result Performing Organization Address [facility] de Phone Number [facility] [address] [place] [phone] * (ABNORMAL) Hepatic Function Panel (12/20/2024 4:51 PM EST) Bilirubin, Total 1.6(H) 0.0 - 1.0 mg/dL [facility] Comment:Slight Icterus. Bilirubin, Direct 0.5 0.0 - 0.5 mg/dL [facility] Comment:Slight Icterus. Aspartate Amino Transferase 26 5 - 37 U/L [facility] Comment:Slight Hemolysis.Int erpret result with caution. Alanine Aminotransferase 18 0 - 40 U/L [facility] Total Protein 7.8 6.5 - 8.0 g/dL [facility] Albumin Level 4.5 3.5 - 5.0 g/dL [facility] Alkaline Phosphatase 65 39 - 117 U/L [facility] Blood Venous blood specimen / Unknown 12/20/2024 4:51 PM EST 12/20/2024 5:35 PM EST us Nataliia Amos MD LAB BLOOD ORDERABLES Final Result [facility] [address] [place] [address] [phone] from Last 3 Months Insurance [facility] C[place] AD[place] Care Teams Agricultural Equipment Sales Manager Relationship Specialty Start Date End Date Olaf Gillespie MD [address] [place] [phone] PCP - General Internal Medicine 12/11/24
--- OUTSIDE RECORDS SUMMARY | 2025-02-05 09:52 | XMS_ITS | Encounter Summary ---
Author Organization [employer] Address [address] [place] [address] 7 [place] [address] Care Team Providers Care Manager International Name Role Phone Angel Fraser MD Primary Care Provider [phone] Olaf Gillespie MD Primary Care Prov ider [...] Description 02/12/2025 9:00 AM EDT Office Visit [facility] [address] [place] [address] Olaf Gillespie MD [address] [place] [address] 04/17/2025 10:10 AM EDT Office Visit [facility] [address] [place] [address] Pamela Poe LLD [address] [place] [address] documented as of this encounter Visit Diagnoses Not on filedocumented in this encounter Care Teams Manager International Relationship Specialty Start Date End Date Angel Fraser MD [address] [place] [address] PCP - General Internal Medicine 07/05/18 12/19/23 Olaf Gillespie MD [address] [place] [address] PCP - General Internal Medicine 12/11/24 documented as of this encounter
--- OUTSIDE RECORDS SUMMARY | 2025-02-05 09:52 | XMS_ITS | Encounter Summary ---
Author Organization [employer] Address [address] [place] [address] 7t [place] [address] Care Team Providers Care Flexible Nanny Name Role Phone Olaf Gillespie MD Primary Care Prov ider Reason for Referral * Imaging (Urgent) - Authorized Specialty Diagnoses / Procedures Referred By Contac t Referred To Contact Radiology Diagnoses Right upper quadrant pain Procedures US Abdomen Complete Cheryle Beltran MD [address] [place] [address] Phone: tel: fax: [address] Phone: tel: fax: Referral ID Status Reason Start Date Expiration Date V isits Requested Visits Authorized [id number] Authorized 01/30/2025 01/30/2026 1 1 Reason for Visit * Reason Comments sick visit Encounter Details Date Type Department Care Team (Late st Contact Info) Description 01/30/2025 11:15 AM EST Office Visit [facility] [address] [place], [place] [phone] Cheryle Beltran MD [address] [place], [place] [phone] Right upper quadrant pain (Primary Dx) Social [...] Problem List Diagnosis Chronic alcoholism in remission ([facility]) Encounter for medical examination to establish care [...] Description 02/12/2025 9:00 AM EDT Office Visit [facility] [address] [place] [address] VelizOlaf Jose MD [address] [place] [address] 04/17/2025 10:10 AM EDT Office Visit [place] [facility] [address] [place] [address] Pamela Poe LLD [address] [place] [address] Scheduled Orders Name Type Priority Associated Diagnoses [...] EST) Lipase 20 8 - 78 U/L [facility] Blood Venous blood specimen / Unknown 01/30/2025 12:38 PM EST 01/30/2025 1:14 PM EST us Cheryle Beltran MD LAB BLOOD ORDERABLES Final Res ult [facility] [address] [place] [phone] * CBC auto differential (01/30/2025 12:38 PM EST) Pathologist [facility] White Blood Count 8.1 4.8 - 10.8 X10*3/uL [facility] Red Blood Count 5.23 4.60 - 5.80 X10*6/uL [facility] Hemoglobin 15.9 14.0 - 18.0 g/dl [facility] Hematocrit 46.8 42.0 - 52.0 % [facility] Mean Corpuscular Volume 89.5 80.0 - 98.0 fL [facility] Mean Corpuscular Hemoglobin 30.4 27.0 - 33.0 pg [facility] Mean Corpuscular HGB Conc 34.0 31.0 - 36.0 g/dl [facility] Red Cell Distribution Width 13.0 11.0 - 16.0 % [facility] Platelet Count 301 160 - 400 X10*3/uL [facility] Mean Platelet Volume 9.5 9.4 - 12.4 fL [facility] Neutrophils Percent Auto 66.1 45 - 73 % [facility] Imm Gran Pct Auto 0.4 0.0 - 0.4 % [facility] Lymphocytes Percent Auto 24.8 20 - 40 % [facility] Monocytes Percent Auto 8.2 2 - 11 % [facility] Eosinophils Percent Auto 0.0 0 - 4 % [facility] Basophils Percent Auto 0.5 0 - 2 % [facility] NRBC Pct Auto 0.0 0.0 - 0.2 /100WBC [facility] Neutrophils Absolute Auto 5.3 2.0 - 8.3 x10*3/uL [facility] Imm Gran Abs Auto 0.03 0.00 - 0.03 X10*3/uL [facility] Lymphocytes Absolute Auto 2.0 1.2 - 4.9 X10*3/uL [facility] Monocytes Absolute Auto 0.7 0.1 - 1.2 X10*3/uL [facility] Eosinophils Absolute Auto 0.0 0.0 - 0.4 X10*3/uL [facility] Basophils Absolute Auto 0.0 0.0 - 0.2 X10*3/uL [facility] NRBC Abs Auto 0.000 0.0 - 0.012 X10*3/uL [facility] Blood Venous blood specimen / Unknown 01/30/2025 12:38 PM EST 01/30/2025 1:14 PM EST us Cheryle Beltran MD LAB BLOOD ORDERABLES Final Res ult [facility] [address] [place] [phone] * (ABNORMAL) Comprehensive Metabolic Panel (01/30/2025 12:38 PM EST) Sodium 140 135 - 145 mmol/L [facility] Potassium 3.8 3.3 - 5.1 mmol/L [facility] Chloride 106 96 - 108 mmol/L [facility] Carbon Dioxide 25 22 - 29 mmol/L [facility] Anion Gap 13 12 - 20 [facility] Urea Nitrogen (BUN) 4(L) 9 - 16 mg/dL [facility] Creatinine, Serum 0.77 0.5 - 1.4 mg/dL [facility] Estimated Glomerular Filt Rate >60 [facility] Comment:Chronic Kidney Disea se: Estimated GFR < 60 mL/min/1.17k7Rogacl Kidney Disease: Estimated GFR < 15 mL/min/1.73m2 Glucose 102 60 - 115 mg/dL [facility] Calcium 9.4 8.4 - 10.2 mg/dL [facility] Bilirubin, Total 3.2(H) 0.0 - 1.0 mg/dL [facility] Comment:Slight Icterus. Aspartate Amino Transferase 38(H) 5 - 37 U/L [facility] Alanine Aminotransferase 31 0 - 40 U/L [facility] Total Protein 8.0 6.5 - 8.0 g/dL [facility] Albumin Level 4.7 3.5 - 5.0 g/dL [facility] Alkaline Phosphatase 79 39 - 117 U/L [facility] Blood Venous blood specimen / Unknown 01/30/2025 12:38 PM EST 01/30/2025 1:14 PM EST us Cheryle Beltran MD LAB BLOOD ORDERABLES Final Res ult [facility] [address] [place] [phone] * Urinalysis, Complete, with Reflex to Culture (01/30/2025 12:38 PM EST) Color Urine Yellow [facility] Appearance Urine Clear [facility] PH 6.5 5.0 - 9.0 [facility] Glucose Urine UA Negative Negative mg/dL [facility] Urine Blood Negative Negative [facility] Specific [place] - Urine 1.010 1.005 - 1.025 [facility] Urine Protein Negative Neg-Trace mg/dL [facility] Urine Ketones 40 Negative mg/dL [facility] Nitrite Urine Negative Negative [facility] Leukocyte Esterase Urine Negative Negative [facility] RBC Urine 0-2 0 - 2 /HPF [facility] Urine WBC 0-5 0 - 5 /HPF [facility] Urine Squamous Epithelial Cell 0-2 0 - 2 /HPF [facility] Urine Bacteria None Seen None Seen [facility] Hyaline Casts, Urine 0-2 0 - 2 /LPF [facility] Urine 01/30/2025 12:3 8 PM EST 01/30/2025 1:10 PM EST Narrative [facility] - 01/30/2025 1:40 PM EST Urine, Clean Catch us Cheryle Beltran MD LAB URINE ORDERABLES Final Res ult [facility] [address] [place] [phone] documented in this encounter Visit Diagnoses Diagnosis Right upper quadrant pain- Primary Abdominal pain, right upper quadrant documented in this encounter Additional Health Concerns Assessment Noted Time PHQ-9 Depression Total Score: 6 01/01/20 3:47 PM EST documented as of this encounter Care Teams Flexible Nanny Relationship Specialty Start Date End Date Olaf Gillespie MD [address] [place] [phone] PCP - General Internal Medicine 12/11/24 documented as of this encounter
--- OUTSIDE RECORDS SUMMARY | 2025-02-05 09:52 | XMS_ITS | Encounter Summary ---
Author Organization [employer] Address [address] [facility] 7t [place] [address] Care Team Providers Care Respiratory Care Technician Name Role Phone Olaf Gillespie MD Primary Care Prov ider Reason for Visit * Reason Onset Date Comments Nurse Triage 01/30/2025 Encounter Details Date Type Department Care Team ([facility] st Contact Info) Description 01/30/2025 Telephone [facility] [address] [place] [address] Olaf Gillespie MD [address] [place] [phone] Nurse Triage Social History Tobacco Use Types [...] come and go. Had been seen in [facility] on 12/19/24 and dietary recommendations [...] from 05/15/24 and hours and availablility of [facility] today and tomorrow.Patient verbalized understanding.Reviewed with patient [...] caller accepted this outcome. Contact pt at [phone] documented in this encounter Plan of Treatment Upcoming Encounters Date Type Department Care Team ([facility] st Contact Info) Description 02/12/2025 9:00 AM EDT Office Visit [facility]S [address] [place], [place] [phone] Oalf Gillespie MD [address] [place] [address] 04/17/2025 10:10 AM EDT Office Visit [place] [facility] [address] [place] [address] Pamela Poe LLD [address] [place] [address] documented as of this encounter Visit Diagnoses Not on filedocumented in this encounter Additional Health Concerns Assessment Noted Time PHQ-9 Depression Total Score: 6 01/01/20 3:47 PM EST documented as of this encounter Care Teams Respiratory Care Technician Relationship Specialty Start Date End Date Olaf Gillespie MD [address] [place], [place] [phone] PCP - General Internal Medicine 12/11/24 documented as of this encounter
--- OUTSIDE RECORDS SUMMARY | 2025-02-05 09:52 | XMS_ITS | Encounter Summary ---
Author Organization [employer] Address [address] [facility] [address] [place] [address] Care Team Providers Care Japanese Professor Name Role Phone Olaf Gillespie MD Primary Care Prov ider Encounter Details Date Type Department Care Team (Latest Contact Info) Description 01/31/2025 Orders Only [facility] [address] [place] [address] Cheryle Beltran MD [address] [place] [address] Hyperbilirubinemia (Primary Dx) Social History Tobacco Use [...] Description 02/12/2025 9:00 AM EDT Office Visit [facility] MED & PEDS [address] [place] [address] Olaf Gillespie MD [address] [place] [address] 04/17/2025 10:10 AM EDT Office Visit [facility] [address] [place] [address] Pamela Poe LLD [address] [place] [address] documented as of this encounter Procedures Procedure Name Priority Date/Time Associated Diagnosis Comments PATHOLOGIST REVIEW - CBC Routine 02/01/2025 12:47 PM EST Hyperbilirubinemia RETICULOCYTE COUNT Routine 02/01/2025 12 :47 PM EST Hyperbilirubinemia documented in this encounter Results * Pathologist Review Of Peripheral Smear (02/01/2025 12:47 PM EST) Pathologist Review - CBC SEE NOTE [facility] Comment:Red blood cell echin ocytes are present (physiologic versusartifact). Otherwise, peripheral blood elements are normalappearing.- David Ritchie M.D. Pathology Blood Venous blood specimen / Unknown 02/01/2025 12:47 PM EST 02/01/2025 4:19 PM EST us Cheryle Beltran MD LAB BLOOD ORDERABLES Final Res ult [facility] [address] [place] [address] [phone] * (ABNORMAL) Reticulocyte Count (02/01/2025 12:47 PM EST) Reticulocytes Absolute 0.066 0.026 - 0.095 X10*6/uL [facility] Immature Retic Fraction 6.9 2.3 - 13.4 % [facility] Retic HGB Equivalent 35.7(H) 30.0 - 35.0 pg [facility] Reticulocyte Percent 1.3 0.5 - 1.8 % [facility] Blood Venous blood specimen / Unknown 02/01/2025 12:47 PM EST 02/01/2025 4:19 PM EST us Cheryle Beltran MD LAB BLOOD ORDERABLES Final Res ult [facility] [address] [place] [address] [phone] documented in this encounter Visit Diagnoses Diagnosis Hyperbilirubinemia- Primary Disorders of bilirubin excretion documented in this encounter Additional Health Concerns Assessment Noted Time PHQ-9 Depression Total Score: 6 01/01/20 25 3:47 PM EST documented as of this encounter Care Teams Japanese Professor Relationship Specialty Start Date End Date Olaf Gillespie MD [address] [place] [phone] PCP - General Internal Medicine 12/11/24 documented as of this encounter
--- OUTSIDE RECORDS SUMMARY | 2025-02-05 09:52 | XMS_ITS | Encounter Summary ---
Author Organization [employer] Address [address] [place] [address] 7 [place] [address] Care Team Providers Care Water Quality Manager Name Role Phone Angel Fraser MD Primary Care Provider [phone]- [phone] Olaf Gillespie MD Primary Care Prov ider [...] 02/12/2025 9:00 AM EDT Office Visit [facility] MED [facility] PEDS [address] [place] [address] Olaf Gillespie MD [address] [place] [address] 04/17/2025 10:10 AM EDT Office Visit [facility] Dental [address] [place] [address] Pamela Poe LLD 9 [place] [address] documented as of this encounter Visit Diagnoses Not on filedocumented in this encounter Care Teams Water Quality Manager Relationship Specialty Start Date End Date Angel Fraser MD [address] [place] [address] PCP - General Internal Medicine 07/05/18 12/19/23 Olaf Gillespie MD [address] [place] [address] PCP - General Internal Medicine 12/11/24 documented as of this encounter
--- OUTSIDE RECORDS SUMMARY | 2025-02-05 09:52 | XMS_ITS | Encounter Summary ---
Author Organization [employer] Address [address] [place] [address] 7t [place] [address] Care Team Providers Care Poultry Boner Name Role Phone Olaf Gillespie MD Primary Care Prov ider Reason for Visit * Reason Comments Filling Encounter Details Date Type Department Care Team (Late st Contact Info) Description 01/22/2025 9:00 AM EST Office Visit [facility] DENTAL [address] [place] [address] Gina Rascon LLD 9 [place] [address] Social History Tobacco Use Types Packs/Day Years [...] Description 02/12/2025 9:00 AM EDT Office Visit [facility] PEDS [address] [place] [address] Olaf Gillespie MD [address] [place] [address] 04/17/2025 10:10 AM EDT Office Visit [facility] Dental [address] [place] [address] Pamela Poe LLD 9 [place] [address] documented as of this encounter Procedures Procedure Name Priority Date/Time Associated Diagnosis Comments 29 DO RESIN-BASED COMPOSITE - 2 SURF, POSTERIOR Routine 01/22/2025 9:00 AM EST documented in this encounter Visit Diagnoses Not on filedocumented in this encounter Additional Health Concerns Assessment Noted Time PHQ-9 Depression Total Score: 6 01/01/20 3:47 PM EST documented as of this encounter Care Teams Poultry Boner Relationship Specialty Start Date End Date Olaf Gillespie MD [address] [place] [address] PCP - General Internal Medicine 12/11/24 documented as of this encounter
--- OUTSIDE RECORDS SUMMARY | 2025-02-05 09:52 | XMS_ITS | Encounter Summary ---
Author Organization [employer] Address [address] [facility] 7 [place] [address] Care Team Providers Care Rough Rounder Machine Name Role Phone Olaf Gillespie MD Primary Care Prov ider Reason for Referral * Consultation (Routine) - Closed Specialty Diagnoses / Procedures Referred By Contperla t Referred To Contact Orthopaedic Surgery Diagnoses Right hip pain Angel Fraser MD [address] [place] [address] Phone: tel: fax: [facility] [address] [place] [address] Phone: tel: Referral ID Status Reason Start Date Expiration Date V isits Requested Visits Authorized [id number] Closed Specialty Services Required 05/15/2024 05/15/2025 1 1 Encounter Details Date Type Department Care Team (Late st Contact Info) Description 05/15/2024 Orders Only [facility] MED & PEDS [address] [place] [address] Angel Fraser MD [address] [place] [address] Right hip pain (Primary Dx) Social History [...] 9:00 AM EDT Office Visit [facility] MED & PEDS [address] [place] [address] Olaf Gillespie MD [address] [place] [address] 04/17/2025 10:10 AM EDT Office Visit [facility] Dental [address] [place] [address] Pamela Poe LLD [address] [place] [phone] Scheduled Referrals Name Type Priority Associated Diagnoses Order Schedule Referral to Orthopaedic Surgery Outpatient Referral Routine Right hip pain Expected: 05/15/2024 (Approximate), Expires: 05/15/2025 documented as of this encounter Visit Diagnoses Diagnosis Right hip pain- Primary Pain in joint, pelvic region and thigh documented in this encounter Care Teams Rough Rounder Machine Relationship Specialty Start Date End Date Olaf Gillespie MD [address] [place] [address] PCP - General Internal Medicine 12/11/24 documented as of this encounter
--- OUTSIDE RECORDS SUMMARY | 2025-02-05 09:52 | XMS_ITS | Encounter Summary ---
Author Organization [employer] Address [address] [place] [address] 7t [place] [address] Care Team Providers Care Planishing Press Operator Name Role Phone Olaf Gillespie MD Primary Care Prov ider Reason for Visit * Reason Onset Date Comments Results 01/30/2025 Encounter Details Date Type Department Care Team ([facility] Contact Info) Description 01/30/2025 Telephone [facility] MEDICINE [address] [place] [address] Cheryle Beltran MD [address] [place] [address] Results Social History Tobacco Use Types Packs/Day [...] 4:25 PM EST TC placed to patient [phone] in regards to below message. Patient reports [...] results: Labs Date when done: 01/30/25 Facility: [facility] lab Pt very concerned with results/ Received via patient portal Pt seen today by Dr Beltran documented in this encounter Plan of Treatment Upcoming Encounters Date Type Department Care Team ([facility] st Contact Info) Description 02/12/2025 9:00 AM EDT Office Visit [facility] CHC MED & PEDS [address] [place] [address] Olaf Gillespie MD [address] [place] [address] 04/17/2025 10:10 AM EDT Office Visit [facility] Dental [address] [place] [address] Pamela Poe LLD 9 [place] [address] documented as of this encounter Visit Diagnoses Not on filedocumented in this encounter Additional Health Concerns Assessment Noted Time PHQ-9 Depression Total Score: 6 01/01/20 3:47 PM EST documented as of this encounter Care Teams Planishing Press Operator Relationship Specialty Start Date End Date Olaf Gillespie MD [address] [place] [address] PCP - General Internal Medicine 12/11/24 documented as of this encounter
--- OUTSIDE RECORDS SUMMARY | 2025-02-05 09:52 | XMS_ITS | Encounter Summary ---
Author Organization [employer] Address [address] [place] [address] 7 [place] [address] Care Team Providers Care Dedicated Driver Name Role Phone Angel Fraser MD Primary Care Provider [phone]- [phone] Olaf Gillespie MD Primary Care Prov ider [...] Description 02/12/2025 9:00 AM EDT Office Visit [facility] CHC MED & PEDS [address] [place] [address] Olaf Gillespie MD [address] [place] [address] 04/17/2025 10:10 AM EDT Office Visit [facility] Dental [address] [place] [address] Pamela Poe LLD 9 [place] [address] documented as of this encounter Visit Diagnoses Not on filedocumented in this encounter Care Teams Dedicated Driver Relationship Specialty Start Date End Date Angel Fraser MD [address] [place] [address] PCP - General Internal Medicine 07/05/18 12/19/23 Olaf Gillespie MD [address] [place] [address] PCP - General Internal Medicine 12/11/24 documented as of this encounter
--- OUTSIDE RECORDS SUMMARY | 2025-02-05 09:52 | XMS_ITS | Encounter Summary ---
Author Organization [employer] Address [address] [facility] 7t [place] [address] Care Team Providers Care Senior Construction Manager Name Role Phone Olaf Gillespie MD Primary Care Prov ider Reason for Visit * Reason Onset Date Comments Lab Orders 02/01/2025 Encounter Details Date Type Department Care Team ([facility] st Contact Info) Description 02/01/2025 Telephone [facility] MEDICINE [address] [place] [address] Olaf Gillespie MD [address] [place] [address] Lab Orders Social History Tobacco Use Types [...] Liver Panel - Total Bilirubin contact pt: [phone] documented in this encounter Plan of Treatment Upcoming Encounters Date Type Department Care Team (Late st Contact Info) Description 02/12/2025 9:00 AM EDT Office Visit [facility] CHC MED & PEDS [address] [place] [address] Olaf Gillespie MD [address] [place] [address] 04/17/2025 10:10 AM EDT Office Visit [facility] Dental [address] [place] [address] Pamela Poe LLD [address] [place] [address] documented as of this encounter Visit Diagnoses Not on filedocumented in this encounter Additional Health Concerns Assessment Noted Time PHQ-9 Depression Total Score: 6 01/01/20 3:47 PM EST documented as of this encounter Care Teams Senior Construction Manager Relationship Specialty Start Date End Date Olaf Gillespie MD [address] [place] [address] PCP - General Internal Medicine 12/11/24 documented as of this encounter
== END 2025-02-05 09:15 | disposition home or self-care (01) ==
LOC: HO.HMGCX 09:14
PROVIDERS: PCP Internal Medicine; Visit Provider General Practice
DX: R10.11 Right upper quadrant pain (principal)
CPT/HCPCS: 76700

== ENCOUNTER → 2025-02-05 09:17 | Outpatient (BNV) | payer MEDICAID, SELFPAY | PROVIDERS: PCP Internal Medicine; Visit Provider Radiology Diagnostic Radiology | DX: R10.11 Right upper quadrant pain (principal) | CPT/HCPCS: 76700 ==

== ENCOUNTER 2025-02-12 09:47 | Outpatient (REF) | payer MEDICAID, SELFPAY ==
[2025-02-12 14:25] LABS: MANUAL DIFF FLAG NO
[2025-02-12 14:27] LABS: Basophils Percent Auto 0.6 % (0-2); Eosinophils Absolute Auto 0.1 X10*3/uL (0.0-0.4); Eosinophils Percent Auto 0.8 % (0-4); Hematocrit 46.8 % (42.0-52.0); Hemoglobin 15.4 g/dl (14.0-18.0); Imm Gran Abs Auto 0.06 X10*3/uL (0.00-0.03); Imm Gran Pct Auto 0.8 % (0.0-0.4); Lymphocytes Absolute Auto 2.3 X10*3/uL (1.2-4.9); Lymphocytes Percent Auto 32.1 % (20-40); Mean Corpuscular HGB Conc 32.9 g/dl (31.0-36.0); Mean Corpuscular Hemoglobin 30.5 pg (27.0-33.0); Mean Corpuscular Volume 92.7 fL (80.0-98.0); Mean Platelet Volume 10.1 fL (9.4-12.4); Monocytes Absolute Auto 0.6 X10*3/uL (0.1-1.2); Monocytes Percent Auto 8.3 % (2-11); Neutrophils Absolute Auto 4.1 x10*3/uL (2.0-8.3); Neutrophils Percent Auto 57.4 % (45-73); Platelet Count 279 X10*3/uL (160-400); Red Blood Count 5.05 X10*6/uL (4.60-5.80); Red Cell Distribution Width 13.3 % (11.0-16.0); White Blood Count 7.1 X10*3/uL (4.8-10.8)
[2025-02-12 15:21] LABS: Alanine Aminotransferase 27 U/L (0-40); Albumin Level 4.3 g/dL (3.5-5.0); Alkaline Phosphatase 75 U/L (39-117); Anion Gap 11 (12-20); Aspartate Amino Transferase 26 U/L (5-37); Bilirubin Direct 0.5 mg/dL (0.0-0.5); Bilirubin Total 1.7 mg/dL (0.0-1.0); Blood Urea Nitrogen 9 mg/dL (9-16); Calcium 8.9 mg/dL (8.4-10.2); Carbon Dioxide 28 mmol/L (22-29); Chloride 108 mmol/L (96-108); Estimated Glomerular Filt Rate > 60; Glucose Random 84 mg/dL (60-115); Potassium 3.9 mmol/L (3.3-5.1); Sodium 143 mmol/L (135-145); Total Protein 7.2 g/dL (6.5-8.0)
== END 2025-02-12 09:48 | disposition home or self-care (01) ==
LOC: HO.CHCLDS 09:47
PROVIDERS: Visit Provider Internal Medicine
DX: R17 Unspecified jaundice (principal)
CPT/HCPCS: 36415; 80053; 82248; 85025

== ENCOUNTER 2025-05-15 10:24 | Outpatient (REF) | payer MEDICAID, SELFPAY ==
--- OUTSIDE RECORDS SUMMARY | 2025-05-15 11:56 | XMS_ITS | Encounter Summary ---
Author Organization [employer] Address [address] [facility] 7t [place] [address] Care Team Providers Care Quality Improvement Manager Name Role Phone Angel Fraser MD Primary Care Provider [phone]- [phone] Olaf Gillespie MD Primary Care Prov ider [...] Care Team (Late st Contact Info) Description 07/20/2025 1:45 PM EDT Office Visit [facility] MEDICINE [address] [place] [address] Cheryle Beltran MD [address] [place] [address] 10/11/2025 9:30 AM EST Office Visit [facility] Dental [address] [place] [address] Pamela Poe LLD 9 [place] [address] documented as of this encounter Visit Diagnoses Not on filedocumented in this encounter Care Teams Quality Improvement Manager Relationship Specialty Start Date End Date Angel Fraser MD [address] [place] [address] PCP - General Internal Medicine 07/05/18 12/19/23 Olaf Gillespie MD [address] [place] [address] PCP - General Internal Medicine 12/11/24 07/19/25 documented as of this encounter
[2025-05-15 12:12] LABS: Estimated Average Glucose 94 mg/dL; Hemoglobin A1c % 4.9 % (<6.0)
[2025-05-15 12:14] LABS: Glucose Random 116 mg/dL (60-115)
== END 2025-05-15 10:25 | disposition home or self-care (01) ==
LOC: HO.HHCL 10:24
PROVIDERS: PCP General Practice; Visit Provider Internal Medicine
DX: B37.9 Candidiasis, unspecified (principal)
CPT/HCPCS: 36415; 82947; 83036

== ENCOUNTER 2025-10-23 11:01 | Outpatient (RCR) | payer MEDICAID, SELFPAY | END 2025-11-26 15:30 | disposition home or self-care (01) | LOC: HO.PT 11:01 | PROVIDERS: PCP General Practice; Visit Provider General Practice | DX: R29.898 Other symptoms and signs involving the musculoskeletal system (principal) | CPT/HCPCS: 97162 ==